=== PATIENT | female | born 1970 | race Caucasian/White ===

== ENCOUNTER → 2017-01-03 | Outpatient (REF) | payer OTHER ==
[~2017-01-03] MED LIST: BUSP15TA47 PO; CYMB60CA3 PO; KETO10TAB PO; MELO7.5T7 PO; OMEP10CASR PO; TIZA4CAP3 PO; TRAZ50TA11 PO; VICO5TAB16 PO
[2017-01-03 21:29] LABS: ALBUMIN 3.5 GM/DL (3.2-5.2); ALBUMIN/GLOBULIN RATIO 1.06 (1.00-1.93); ALKALINE PHOSPHATASE 92 U/L (45-117); ALT/SGPT 31 U/L (12-78); AMYLASE 49 U/L (25-115); ANION GAP 7 MEQ/L (8-16); AST/SGOT 14 U/L (15-37); BILIRUBIN,TOTAL 0.2 MG/DL (0.2-1.0); BLOOD UREA NITROGEN 11 MG/DL (7-18); CALCIUM LEVEL 9.1 MG/DL (8.5-10.1); CARBON DIOXIDE LEVEL 29 MEQ/L (21-32); CHLORIDE LEVEL 102 MEQ/L (98-107); CREATININE FOR GFR 0.66 MG/DL (0.55-1.02); GLOMERULAR FILTRATION RATE > 60.0 (>58); GLUCOSE, FASTING 98 MG/DL (70-105); POTASSIUM SERUM 4.5 MEQ/L (3.5-5.1); SODIUM LEVEL 138 MEQ/L (136-145); TOTAL PROTEIN 6.8 GM/DL (6.4-8.2)
[2017-01-03 21:30] LABS: BASO % 0.1 % (0.0-1.0); EOS # 0.1 K/mm3 (0.0-0.50); EOS % 1.3 % (0.0-3.0); LARGE UNSTAINED CELL # 0.2 K/mm3 (0.0-0.4); LARGE UNSTAINED CELL % 1.4 % (0.0-4.0); LYMPH # 2.4 K/mm3 (1.5-4.5); LYMPH % 20.1 % (24.0-44.0); MEAN CORPUSCULAR HEMOGLOBIN 31.1 pg (27.0-33.0); MEAN CORPUSCULAR HGB CONC 32.5 g/dl (32.0-36.5); MEAN CORPUSCULAR VOLUME 95.6 fl (80.0-96.0); MONO # 0.6 K/mm3 (0.0-0.8); MONO % 5.1 % (0.0-5.0); NEUTROPHILS % 71.9 % (36.0-66.0); PLATELET COUNT, AUTOMATED 313 k/mm3 (150-450); RED CELL DISTRIBUTION WIDTH 14.1 % (11.5-14.5); WHITE BLOOD COUNT 11.1 K/mm3 (4.0-10.0)
== END ==
LOC: M LABDRWAD 20:51 → M LAB REF 20:51
PROVIDERS: ATTEND Physician Assistant
DX: R10.84 Generalized abdominal pain (principal)

== ENCOUNTER 2017-02-19 19:40 | Emergency (ER) | payer OTHER ==
[~2017-02-19] VITALS: Ht 160 cm; Wt 86.4 kg
[2017-02-19 19:41] VITALS: BP 131/86
[2017-02-19] MEDS ORDERED: OMEP10CASR PO (20:05)
[2017-02-19] MEDS ORDERED: TIZA4CAP3 PO (20:05)
[2017-02-19] MEDS ORDERED: BUSP15TA47 PO (20:05)
[2017-02-19] MEDS ORDERED: VICO5TAB16 PO (20:05)
[2017-02-19] MEDS ORDERED: TRAZ50TA11 PO (20:05)
[2017-02-19] MEDS ORDERED: MELO7.5T7 PO (20:05)
[2017-02-19] MEDS ORDERED: CYMB60CA3 PO (20:05)
[2017-02-19] MEDS ORDERED: PERCOCET 5MG/325MG TAB PO ONE (22:30)
[2017-02-19] MEDS ORDERED: KETO10TAB PO (23:02)
--- NOTE | 2017-02-20 08:48 | REP ---
Clinical: Right shoulder pain. Technique: Internal rotation, external rotation, and Y view. Findings: Mild arthritic degenerative changes at the acromioclavicular joint include joint space narrowing with subtle spurring. The glenohumeral joint appears intact and normal. The subacromial space is normal. No periarticular calcifications are appreciated. 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 Signed by Horacio Clay MD 02/20/2017 08:40 A
== END 2017-02-19 23:41 | disposition home or self-care (01) ==
LOC: M ED 19:40
DX: M25.511 Pain in right shoulder (principal)

== ENCOUNTER → 2017-09-11 | Outpatient (CLI) | payer OTHER ==
[2017-09-11 17:53] LABS: BASO % 0.3 % (0.0-1.0); EOS # 0.1 10^3/uL (0.0-0.50); EOS % 1.2 % (0.0-3.0); HEMATOCRIT 39.4 % (36.0-47.0); HEMOGLOBIN 12.4 g/dl (12.0-16.0); IMMATURE GRANULOCYTE % 0.3 % (0-3.0); MEAN CORPUSCULAR HEMOGLOBIN 28.7 pg (27.0-33.0); MEAN CORPUSCULAR HGB CONC 31.5 g/dl (32.0-36.5); MEAN CORPUSCULAR VOLUME 91.2 fl (80.0-96.0); MONO # 0.5 10^3/uL (0.0-0.8); MONO % 4.5 % (0.0-5.0); NEUTROPHILS # 7.1 10^3/uL (1.8-7.7); NEUTROPHILS % 65.7 % (36.0-66.0); PLATELET COUNT, AUTOMATED 360 10^3/uL (150-450); RED BLOOD COUNT 4.32 10^6/uL (4.00-5.40); RED CELL DISTRIBUTION WIDTH 13.8 % (11.5-14.5); WHITE BLOOD COUNT 10.8 10^3/uL (4.0-10.0)
== END ==
LOC: M ADAMS 09:17
DX: J20.9 Acute bronchitis, unspecified (principal)
CPT/HCPCS: 85025

== ENCOUNTER → 2017-09-15 | Outpatient (REF) | payer OTHER | LOC: M LAB REF 17:45 | DX: N64.89 Other specified disorders of breast (principal) | CPT/HCPCS: 88305 ==

== ENCOUNTER → 2017-12-07 | Outpatient (CLI) | payer OTHER | LOC: M ADAMS 19:00 | DX: M25.572 Pain in left ankle and joints of left foot (principal) ==

== ENCOUNTER → 2017-12-07 | Outpatient (CLI) | payer OTHER | LOC: M ADAMS 18:11 | DX: M25.572 Pain in left ankle and joints of left foot (principal) | CPT/HCPCS: 73610 ==

== ENCOUNTER 2018-01-28 18:36 | Emergency (ER) | payer OTHER ==
[2018-01-28 20:16] LABS: BASO % 0.1 % (0.0-1.0); EOS # 0.7 10^3/uL (0.0-0.50); EOS % 4.9 % (0.0-3.0); HEMATOCRIT 29.9 % (36.0-47.0); HEMOGLOBIN 9.4 g/dl (12.0-15.5); IMMATURE GRANULOCYTE % 0.3 % (0-3.0); LYMPH # 3.8 10^3/uL (1.5-4.5); LYMPH % 25.6 % (24.0-44.0); MEAN CORPUSCULAR HEMOGLOBIN 29.7 pg (27.0-33.0); MEAN CORPUSCULAR HGB CONC 31.4 g/dl (32.0-36.5); MEAN CORPUSCULAR VOLUME 94.6 fl (80.0-96.0); MONO # 0.7 10^3/uL (0.0-0.8); NEUTROPHILS # 9.4 10^3/uL (1.8-7.7); NEUTROPHILS % 64.1 % (36.0-66.0); PLATELET COUNT, AUTOMATED 401 10^3/uL (150-450); RED BLOOD COUNT 3.16 10^6/uL (4.00-5.40); RED CELL DISTRIBUTION WIDTH 13.2 % (11.5-14.5); WHITE BLOOD COUNT 14.7 10^3/uL (4.0-10.0)
[2018-01-28] MEDS: AMPICILLIN SOD/SULBACTAM SOD 3 GM in D5W MINI-BAG PLUS 100 ML IV (20:28)
== END 2018-01-28 20:56 | disposition home or self-care (01) ==
LOC: M ED 18:36
DX: N61.1 Abscess of the breast and nipple (principal); K21.9 Gastro-esophageal reflux disease without esophagitis; G89.29 Other chronic pain; M54.2 Cervicalgia
CPT/HCPCS: 76881

== ENCOUNTER 2018-02-01 20:15 | Emergency (ER) | payer OTHER ==
[2018-02-01] MEDS: CLINDAMYCIN 150 MG CAP PO (23:31)
== END 2018-02-01 23:39 | disposition home or self-care (01) ==
LOC: M ED 20:15
DX: L76.82 Other postprocedural complications of skin and subcutaneous tissue (principal); N61.0 Mastitis without abscess; N64.1 Fat necrosis of breast; K21.9 Gastro-esophageal reflux disease without esophagitis; M54.9 Dorsalgia, unspecified; Z79.899 Other long term (current) drug therapy
CPT/HCPCS: 99283

== ENCOUNTER → 2018-03-21 | Outpatient (REF) ==
[2018-03-22 10:15] LABS: RUBEOLA IgG ANTIBODY >300.0 AU/mL (Immune >29.9)
[2018-03-22 11:55] LABS: RUBELLA IgG QUALITATIVE IMMUNE (IMMUNE)
== END ==
LOC: M LAB 12:02
DX: Z00.00 Encounter for general adult medical examination without abnormal findings (principal)

== ENCOUNTER 2018-05-05 07:16 | Emergency (ER) | payer OTHER | END 2018-05-05 09:23 | disposition home or self-care (01) | LOC: M ED 07:16 | DX: M25.551 Pain in right hip (principal); M25.561 Pain in right knee; W00.0XXA Fall on same level due to ice and snow, initial encounter; Y92.89 Other specified places as the place of occurrence of the external cause; K21.9 Gastro-esophageal reflux disease without esophagitis; Z79.899 Other long term (current) drug therapy | CPT/HCPCS: 73564 ==

== ENCOUNTER 2018-06-05 10:33 | Emergency (ER) | payer OTHER ==
[2018-06-05 11:25] LABS: BEDSIDE GLUCOSE 81 MG/DL (70-105)
[2018-06-05] MEDS: IBUPROFEN 800 MG TAB PO (12:45)
== END 2018-06-05 12:50 | disposition home or self-care (01) ==
LOC: M ED 10:33
DX: M77.9 Enthesopathy, unspecified (principal); M19.072 Primary osteoarthritis, left ankle and foot; M79.9 Soft tissue disorder, unspecified; K21.9 Gastro-esophageal reflux disease without esophagitis; Z98.1 Arthrodesis status; Z79.899 Other long term (current) drug therapy
CPT/HCPCS: 73630

== ENCOUNTER 2018-08-18 14:52 | Emergency (ER) | payer OTHER ==
[~2018-08-18] VITALS: Ht 160 cm; Wt 90.9 kg
[~2018-08-18 14:52] MED LIST changes: +AUGM500T34 PO; +BACL10TA2 PO; +CLEO300C2 PO; +TIZA4CAP PO; -TIZA4CAP3 PO; +TRAZ-160 PO; -TRAZ50TA11 PO
[2018-08-18] MEDS ORDERED: CEFD1CAP8 (14:58)
[2018-08-18 15:50] LABS: INFLUENZA A AMPLIFICATION NEGATIVE (NEGATIVE); INFLUENZA B AMPLIFICATION NEGATIVE (NEGATIVE)
[2018-08-18 16:14] VITALS: BP 138/72
== END 2018-08-18 16:15 | disposition home or self-care (01) ==
LOC: M ED 14:52
DX: J06.9 Acute upper respiratory infection, unspecified (principal)

== ENCOUNTER 2018-10-20 19:48 | Emergency (ER) | payer OTHER ==
[~2018-10-20] VITALS: Ht 160 cm; Wt 90.9 kg
[~2018-10-20 19:48] MED LIST changes: +CEFD1CAP8; -VICO5TAB16 PO; +VICO5TAB17 PO
[2018-10-20] MEDS ORDERED: PRED20TA (20:01)
[2018-10-20] MEDS ORDERED: AMOX875T2 (20:01)
[2018-10-20] MEDS ORDERED: predniSONE 20 MG TAB PO ONE (20:30)
[2018-10-20] MEDS ORDERED: IPRATROPIUM 0.5MG/ALBUTEROL 2.5MG INH SOL UD 3ML (DUONEB)(J7620) NEB ONE (20:30)
[2018-10-20] MEDS ORDERED: AZITHROMYCIN 250 MG TAB PO ONE (20:30)
[2018-10-20] MEDS ORDERED: ALBUTEROL SULFATE 2.5 MG/0.5 ML INH NEB SOLN NEB ONE (21:15)
[2018-10-20] MEDS ORDERED: ZITHTAB PO (22:18)
[2018-10-20] MEDS ORDERED: PRED20TA PO (22:18)
[2018-10-20 22:43] VITALS: BP 138/71
--- NOTE | 2018-10-21 13:08 | REP ---
CHEST, TWO VIEWS: There is no evidence of acute infiltrate. No pleural effusion is seen. The heart is normal in size. The mediastinal silhouette is unremarkable. The visualized osseous structures are intact. There are mild degenerative changes of the spine. IMPRESSION: No acute pulmonary disease. Electronically Signed by Rolando Pereira MD 10/21/2018 03:52 P
== END 2018-10-20 22:45 | disposition home or self-care (01) ==
LOC: M ED 19:48
DX: J45.901 Unspecified asthma with (acute) exacerbation (principal); J20.9 Acute bronchitis, unspecified

== ENCOUNTER 2019-01-11 04:50 | Emergency (ER) | payer OTHER ==
[~2019-01-11] VITALS: Ht 160 cm; Wt 88.6 kg
[2019-01-11 04:50] VITALS: BP 161/99
[~2019-01-11 04:50] MED LIST changes: +AMOX875T2; +PRED20TA; +PRED20TA PO; -TRAZ-160 PO; +TRAZ-252 PO; +ZITHTAB PO
[2019-01-11] MEDS ORDERED: BACT800T5 PO (06:30)
== END 2019-01-11 06:50 | disposition home or self-care (01) ==
LOC: M ED 04:50
DX: L72.0 Epidermal cyst (principal); L08.89 Other specified local infections of the skin and subcutaneous tissue; Z86.14 Personal history of Methicillin resistant Staphylococcus aureus infection; Z79.899 Other long term (current) drug therapy

== ENCOUNTER 2019-01-17 14:32 | Emergency (ER) | payer OTHER ==
[~2019-01-17] VITALS: Ht 160 cm; Wt 88.6 kg
[~2019-01-17 14:32] MED LIST changes: +BACT800T5 PO
[2019-01-17 15:51] VITALS: BP 130/87
== END 2019-01-17 16:08 | disposition home or self-care (01) ==
LOC: M ED 14:32
DX: Z48.00 Encounter for change or removal of nonsurgical wound dressing (principal); Z79.899 Other long term (current) drug therapy; Z72.0 Tobacco use

== ENCOUNTER → 2019-07-31 | Outpatient (REF) | payer OTHER ==
[2019-07-31 19:42] LABS: APPEARANCE, URINE HAZY (CLEAR); BACTERIA, URINE AUTO 2+ (NEGATIVE); BILIRUBIN, URINE AUTO NEGATIVE (NEGATIVE); BLOOD, URINE BLOOD 3+ (NEGATIVE); COLOR, URINE YELLOW (YELLOW); GLUCOSE, URINE (UA) AUTO NEGATIVE (NEGATIVE); KETONE, URINE AUTO NEGATIVE (NEGATIVE); LEUKOCYTE ESTERASE, URINE AUTO 3+ (NEGATIVE); MUCUS, URINE SMALL (NEGATIVE); NITRITE, URINE AUTO POSITIVE (NEGATIVE); PROTEIN, URINE AUTO NEGATIVE (NEGATIVE); RBC, URINE AUTO 152 /HPF (0-3); SPECIFIC GRAVITY URINE AUTO 1.023 (1.002-1.035); SQUAMOUS EPITHELIAL CELL UR AU 1 /HPF (0-6); UROBILINOGEN, URINE AUTO 0.2 mg/dL (0.0-2.0); WBC, URINE AUTO 117 /HPF (0-3)
== END ==
LOC: M LAB REF 19:25
PROVIDERS: ATTEND Physician Assistant Medical
DX: N39.0 Urinary tract infection, site not specified (principal)

== ENCOUNTER 2019-08-14 10:18 | Emergency (ER) | payer OTHER ==
[~2019-08-14] VITALS: Ht 160 cm; Wt 97.4 kg
[2019-08-14] MEDS ORDERED: IBUPROFEN 800 MG TAB PO ONE (11:15)
--- NOTE | 2019-08-14 12:03 | REP ---
Sonography of the iliac: The patient has a raised red area of the neck posteriorly for the past 3 days. Ultrasonography of this area is performed. In the in this area there is a subcutaneous nodule like structure measuring 0.7 x 0.9 x 0.6 cm with a thin echolucent or an echogenic center. With color Doppler assessment there is no vascular flow detected within this structure. This is nonspecific and may represent a subcutaneous lymph node, lipoma, sebaceous cyst, focal phlegmon, or inclusion cyst. There is no fluid to suggest abscess or hematoma. Impression: In the subcutaneous soft tissues in the area of the ring is read lesion on the right posteriorly. There is a nodule like structure as described, nonspecific. Electronically Signed by Rolando Haq MD 08/14/2019 11:53 A
[2019-08-14 12:32] VITALS: BP 127/84
== END 2019-08-14 12:33 | disposition home or self-care (01) ==
LOC: M ED 10:18
DX: L02.12 Furuncle of neck (principal); K21.9 Gastro-esophageal reflux disease without esophagitis; F41.9 Anxiety disorder, unspecified; F33.9 Major depressive disorder, recurrent, unspecified; Z79.2 Long term (current) use of antibiotics; Z79.899 Other long term (current) drug therapy

== ENCOUNTER → 2020-04-22 | Outpatient (REF) | payer MEDICARE ==
[~2020-04-22] MED LIST changes: +HYDR-3713 PO; +METF500T13 PO; +OMEP-406 PO; +REXU1TAB5 PO
== END ==
LOC: M SFHCWAGY 13:31
PROVIDERS: ATTEND Obstetrics & Gynecology
DX: Z12.4 Encounter for screening for malignant neoplasm of cervix (principal); N95.8 Other specified menopausal and perimenopausal disorders
CPT/HCPCS: 87624; G0123; G0463

== ENCOUNTER → 2020-04-25 | Outpatient (CLI) | payer OTHER ==
--- NOTE | 2020-04-25 10:40 | REP ---
INDICATION: N95.0 POSTMENOPAUSAL BLEEDING. COMPARISON: 03/15/2014. TECHNIQUE: Transabdominal and transvaginal scanning performed. FINDINGS: Uterine dimensions are normal at 7.9 x 3.8 x 4.8 cm. Endometrial echo is 21 mm thick and centrally placed. Echotexture of the endometrium is markedly heterogeneous with scattered tiny cystic components lobulated margins. Underlying hyperplasia or neoplasm cannot be excluded. Please correlate with patient's menstrual history. The bladder measures 7.0 x 4.1 x 5.8 cm. The right ovary has dimensions of 1.8 x 1.1 x 1.2 cm. Blood flow is seen in the right ovary with Doppler evaluation, with no torsion. The left ovary dimensions are normal as well at 1.9 x 1.1 x 1.4 cm. Blood flow is seen in the left ovary with Doppler evaluation, with no torsion. There is no adnexal mass identified. No free fluid is seen in the cul-de-sac. IMPRESSION: Thickened heterogeneous endometrium, AP diameter 21 mm. There are tiny cystic areas scattered throughout the endometrium, with lobulated margins and scattered areas of blood flow with Doppler evaluation. Please correlate with menstrual history. I cannot exclude underlying hyperplasia or endometrial neoplasm. Consider endometrial sampling. <Electronically signed by Rolando Pereira > 04/25/20 [id number]
== END ==
LOC: M WHC 09:30
PROVIDERS: ATTEND Obstetrics & Gynecology
DX: N85.8 Other specified noninflammatory disorders of uterus (principal); N95.0 Postmenopausal bleeding

== ENCOUNTER → 2020-04-27 | Outpatient (CLI) | payer OTHER, MEDICARE | LOC: M LABSMTC 09:58 | PROVIDERS: ATTEND Anesthesiology | DX: Z01.812 Encounter for preprocedural laboratory examination (principal); Z20.828 Contact with and (suspected) exposure to other viral communicable diseases | CPT/HCPCS: C9803; U0003 ==

== ENCOUNTER 2020-05-02 06:16 | Day surgery (SDC) | payer OTHER ==
[~2020-05-02] VITALS: Ht 160 cm; Wt 103.4 kg
[~2020-05-02 06:16] MED LIST changes: +LR 1,000 ML IV SCH
[2020-05-02 06:47] LABS: HEMATOCRIT 39.4 % (36.0-47.0); HEMOGLOBIN 12.4 g/dl (12.0-15.5); MEAN CORPUSCULAR HEMOGLOBIN 29.3 pg (27.0-33.0); MEAN CORPUSCULAR HGB CONC 31.5 g/dl (32.0-36.5); MEAN CORPUSCULAR VOLUME 93.1 fl (80.0-96.0); PLATELET COUNT, AUTOMATED 313 10^3/uL (150-450); RED BLOOD COUNT 4.23 10^6/uL (4.00-5.40); WHITE BLOOD COUNT 11.6 10^3/uL (4.0-10.0)
[2020-05-02] MEDS ORDERED: dexameTHASONE 4 MG/ML 1ML VIAL (J1100 PER 1MG) As Ordered ONE (07:16)
[2020-05-02] MEDS ORDERED: fentaNYL 100 MCG/2 ML INJECTION (J3010) As Ordered ONE (07:16)
[2020-05-02] MEDS ORDERED: ONDANSETRON 4MG/2ML VIAL As Ordered ONE (07:16)
[2020-05-02] MEDS ORDERED: LIDOCAINE 2% 100MG/5ML SDV (FOR ANES.) As Ordered ONE (07:16)
[2020-05-02] MEDS ORDERED: MIDAZOLAM INJ 2MG/2ML VIAL (J2250 PER 1MG) As Ordered ONE (07:16)
[2020-05-02] MEDS ORDERED: propofoL 200 MG/20 ML VIAL As Ordered ONE (07:16)
[2020-05-02] MEDS ORDERED: LR 1,000 ML IV ONE (07:45)
[2020-05-02] MEDS ORDERED: PHENYLephrine HCL 500 MCG/5 ML (100MCG/ML) SYRINGE (J2370) As Ordered ONE (07:49)
--- NOTE | 2020-05-02 08:17 | ROOPDOC ---
[facility] Report Of Operation Report of Operation DATE OF PROCEDURE: 05/02/2020 PREOPERATIVE DIAGNOSIS: Postmenopausal bleeding POSTOPERATIVE DIAGNOSIS: Postmenopausal bleeding PROCEDURE PERFORMED: Hysteroscopy, dilatation and curettage. SURGEON: Marija Turner DO PROSTHETIC AIDES TEACHER: None. ANESTHESIA TYPE: General via LMA. SPECIMENS SENT TO PATHOLOGY: Endometrial curettings, endometrial biopsy ESTIMATED BLOOD LOSS: 20 mL. FLUIDS REPLACED: 500 mL lactated Ringer's. DRAINS: In and out urinary catheter. URINE OUTPUT: 100 mL. COMPLICATIONS: None. PREOPERATIVE ANTIBIOTICS: None indicated. INTRAOPERATIVE FINDINGS: Abundant endometrium inside the endometrial cavity. No distinct endometrial mass INDICATIONS: The patient is a 49-year-old with postmenopausal bleeding PROCEDURE: The patient was counseled and consented on the risks, benefits, indications, and alternatives of the procedure. Informed consent was obtained. She was taken to the operating room with an IV running and placed on the operating room table in the dorsal supine position. General anesthesia was administered and the airway secured without any difficulty. She was then placed in the high lithotomy position. She was prepped and draped in normal sterile fashion. A time out was performed per protocol. The bladder was drained with a sterile in and out catheter. A sterile speculum was placed with good visualization of the cervix. The cervix was grasped with a single-toothed tenaculum and downward traction was applied. The cervix was then sequentially dilated with Orlin dilators up to a #18. The hysteroscope was placed transcervically into the intrauterine cavity with the findings noted above, then the hysteroscope was removed after taking truck sales representative images. The curette was placed transcervically into the intrauterine cavity and endometrial decidual tissue was curetted until there was gritty texture noted throughout the cavity, indicating no more decidualized tissue. An endometrial Pipelle was used to obtain tissue in 3 passes. The bleeding from the os after removal of the curette was minimal. The tenaculum was removed. The tenaculum sites were hemostatic. All instruments were removed from the vagina. Sponge, needle, and instrument counts were correct per protocol. The patient tolerated the entire procedure well. She was transferred to the PACU in good and stable condition. MARIJA TURNER DO May 02, 2020 08:17
[2020-05-02] MEDS ORDERED: ONDANSETRON 4MG/2ML VIAL IV PRN (08:30)
[2020-05-02] MEDS ORDERED: LR 1,000 ML IV SCH (08:30)
[2020-05-02] MEDS ORDERED: fentaNYL 100 MCG/2 ML INJECTION (J3010) IV PRN (08:30)
[2020-05-02] MEDS: oxyCODONE 5MG TAB PO PRN ×2 (08:36→09:18)
[2020-05-02 08:56] VITALS: BP 131/76
== END 2020-05-02 09:35 | disposition home or self-care (01) ==
LOC: M SDC 06:16
PROVIDERS: ATTEND Obstetrics & Gynecology
DX: N95.0 Postmenopausal bleeding (principal); E11.9 Type 2 diabetes mellitus without complications; K21.9 Gastro-esophageal reflux disease without esophagitis; J45.909 Unspecified asthma, uncomplicated; F32.9 Major depressive disorder, single episode, unspecified; Z79.899 Other long term (current) drug therapy
CPT/HCPCS: 36415; 58558; 81025; 85027; 86850; 86900; 86901; 88305; J1100; J2250; J2370; J2405; J3010

== ENCOUNTER 2020-07-31 16:24 | Inpatient (IN) | payer OTHER ==
[~2020-07-31] VITALS: Ht 160 cm; Wt 104.0 kg
[~2020-07-31 16:24] MED LIST changes: -LR 1,000 ML IV SCH
--- OUTSIDE RECORDS SUMMARY | 2020-07-31 16:30 | CCD ---
Author Author [facility] Organization [facility] Address Unknown Phone Unavailable Care Team Providers Care Premium Auditor Name Role Phone Turner, Nico Unavailable PROBLEMS Type Condition ICD9-CM Code SSN00-GF Code Onset Dates Condition S tatus SNOMED Code Notes Problem Postmenopausal bleeding N95.0 Active 11522686 ALLERGIES No Known Allergies ENCOUNTERS from 1970 to 2020-05-08 Encounter Location Date Provider Diagnosis [facility] [address] [place] [id number] Apr, Nico Turner Postmenopausal bleed ing N95.0 and Cervical cancer screening Z12.4 IMMUNIZATIONS No Information SOCIAL HISTORY Tobacco Use: Social History Observation Description Date Details (start date - stop date) Never Smoker Sex Assigned At : Social History Observation Description Sex Assigned At Unknown Domestic Violence: Question Answer Notes Status: No history of abuse Sexual Hx: Question Answer Notes Had sex in the last 12 months (vaginal, oral, or anal)? Yes Have you ever had an STD? No with Women only Alcohol Screening: Question Answer Notes Did you have a drink containing alcohol in the past year? Ye s Points 1 Interpretation Negative How often did you have six or more drinks on one occas ion in the past year? Never (0 points) How many drinks did you have on a typica l day when you were drinking in the past year? 1 or 2 (0 points) How often did you have a drink containing alcohol in t he past year? Monthly or less (1 point) Tobacco Use: Question Answer Notes Are you a: never smoker REASON FOR REFERRAL No Information VITAL SIGNS Weight 228.2 lbs Apr, Height 63 in Apr, BMI 40.42 kg/m2 Apr, Blood pressure systolic 126 mm Hg Apr, Blood pressure diastolic 84 mm Hg Apr, MEDICATIONS Medication SIG (Take, Route, Frequency, Duration) Notes Start Da te End Date Status BusPIRone HCl 15 MG 1 tablet Orally Twice a day Active Cymbalta 60 MG 2 capsules Orally Once a day Active Hydrocodone-Acetaminophen 5-325 MG 1 tablet as needed Orally every 6 hrs Active PROCEDURES No Information RESULTS Component Value Reference Range WWBC Pelvis non-OB COMPLETE US Reviewed date:04/25/2020 11:06:40 Interpretation: Performing Lab:[facility],[address]], ,[place] [id number] PAP REQUEST FOR SERVICE Reviewed date:05/05/2020 16:03:45 Interpretation:KEN Performing Lab:[facility]ly [facility], [facility] [address] [facility] [address] [address] , ,[facility] REASON FOR VISIT IRREG CYCLES MEDICAL (GENERAL) HISTORY Type Description Date Medical History asthma Medical History depression Medical History back pain - upper and lower Surgical History spinal surgery - L4/L3 Surgical History spinal fusion - C3/C7 Surgical History knee surgery Surgical History ankle surgery Surgical History gall bladder removal Surgical History tubal ligation Surgical History hand surgery Hospitalization History surgery Goals Section No Information Health Concerns No Information MEDICAL EQUIPMENT No Information MENTAL STATUS No Information FUNCTIONAL STATUS No Information ASSESSMENTS Encounter Date Diagnosis Assessment Notes Treatment Notes Treatm ent Clinical Notes Apr, Postmenopausal bleeding (ICD-10 - N95.0) PMB that warrants evaluation. Pap updated today. Pelvic US ordered. Recommended HSC/D&C for endometrial evaluation. Patient was counseled/consented on Hysteroscopy, D&C procedure. We specifically reviewed the risks of uterine perforation, postoperative infection, endometrial CA Dx, and potential for ongoing bleeding despite undergoing this procedure, possible need for blood transfusion, possible unintended injury to surrounding organs, and the risk of an endometrial cancer diagnosis with the D&C. Apr, Cervical cancer screening (ICD-10 - Z12.4) PLAN OF TREATMENT Treatment Notes Assessment Notes Clinical Notes Postmenopausal bleeding PMB that warrant s evaluation. Pap updated today. Pelvic US ordered. Recommended HSC/D&C for endometrial evaluation.Patient was counseled/consented on Hysteroscopy, D&C procedure. We specifically reviewed the risks of uterine perforation, postoperative infection, endometrial CA Dx, and potential for ongoing bleeding despite undergoing this procedure, possible need for blood transfusion, possible unintended injury to surrounding organs, and the risk of an endometrial cancer diagnosis with the D&C. Next Appt Details Next available. HSC/D&C to be scheduled Reason: Provider Name:Nico Turner, 12:45:00 AM, [facility] [place], [phone], Insurance Providers Payer Name Payer Address Payer Phone Insured Name Patient Relati onship to Insured Coverage Start Date Coverage End Date [facility] [address] [facility] [address] HUONG SHIRLEY self
--- OUTSIDE RECORDS SUMMARY | 2020-07-31 16:30 | CCD ---
Author Author [facility] Organization [facility] Address Unknown Phone Unavailable Care Team Providers Care Frozen Food Selector Name Role Phone MARCO ANTONIO GARCIA MD Unavailable Unavailable MARCO ANTONIO GARCIA MD Unavailable Unavailable MARCO ANTONIO GARCIA MD Unavailable Unavailable MARCO ANTONIO GARCIA MD Unavailable Unavailable MARCO ANTONIO GARCIA MD Unavailable Unavailable MARCO ANTONIO GARCIA MD Unavailable Unavailable MARCO ANTONIO GARCIA MD Unavailable Unavailable MARCO ANTONIO GARCIA MD Unavailable Unavailable MARCO ANTONIO GARCIA MD Unavailable Unavailable MARCO ANTONIO GARCIA MD Unavailable Unavailable MARCO ANTONIO GARCIA MD Unavailable Unavailable MARCO ANTONIO GARCIA MD Unavailable Unavailable MARCO ANTONIO GARCIA MD Unavailable Unavailable MARCO ANTONIO GARCIA MD Unavailable Unavailable MARCO ANTONIO GARCIA MD Unavailable Unavailable MARCO ANTONIO GARCIA MD Unavailable Unavailable MARCO ANTONIO GARCIA MD Unavailable Unavailable MARCO ANTONIO GARCIA MD Unavailable Unavailable MARCO ANTONIO GARCIA MD Unavailable Unavailable MARCO ANTONIO GARCIA MD Unavailable Unavailable MARCO ANTONIO GARCIA MD Unavailable Unavailable MARCO ANTONIO GARCIA MD Unavailable Unavailable MARCO ANTONIO GARCIA MD Unavailable Unavailable MARCO ANTONIO GARCIA MD Unavailable Unavailable GARCIA, MARCO ANTONIO MD Unavailable Unavailable GARCIA, MARCO ANTONIO MD Unavailable Unavailable GARCIA, MARCO ANTONIO MD Unavailable Unavailable GARCIA, MARCO ANTONIO MD Unavailable Unavailable GARCIA, MARCO ANTONIO MD Unavailable Unavailable GARCIA, MARCO ANTONIO MD Unavailable Unavailable Roxane, C Giorgio MD Unavailable Unavailable Roxane, C Giorgio MD Unavailable Unavailable Roxane, C Giorgio MD Unavailable Unavailable Roxane, C Giorgio MD Unavailable Unavailable Roxane, C Giorgio MD Unavailable Unavailable Roxane, C Giorgio MD Unavailable Unavailable Roxane, C Giorgio MD Unavailable Unavailable Roxane, C Giorgio MD Unavailable Unavailable Roxane, C Giorgio MD Unavailable Unavailable Roxane, C Giorgio MD Unavailable Unavailable Roxane, C Giorgio MD Unavailable Unavailable Roxane, C Giorgio MD Unavailable Unavailable Re-disclosure Warning The records that you are about to access may contain information from federally-assisted alcohol or drug abuse programs. If such information is present, then the following federally mandated warning applies: This information has been disclosed to you from records protected by federal confidentiality rules (42 CFR part 2). The federal rules prohibit you from making any further disclosure of this information unless further disclosure is expressly permitted by the written consent of the person to whom it pertains or as otherwise permitted by 42 CFR part 2. A general authorization for the release of medical or other information is NOT sufficient for this purpose. The Federal rules restrict any use of the information to criminally investigate or prosecute any alcohol or drug abuse patient.The records that you are about to access may contain highly sensitive health information, the redisclosure of which is protected by Article 27-F of the [facility] Public Health law. If you continue you may have access to information: Regarding HIV / AIDS; Provided by facilities licensed or operated by the [facility] Office of Mental Health; or Provided by the [facility] Office for People With Developmental Disabilities. If such information is present, then the following [facility] mandated warning applies: This information has been disclosed to you from confidential records which are protected by state law. State law prohibits you from making any further disclosure of this information without the specific written consent of the person to whom it pertains, or as otherwise permitted by law. Any unauthorized further disclosure in violation of state law may result in a fine or chcf sentence or both. A general authorization for the release of medical or other information is NOT sufficient authorization for further disc losure. Family History Family Member Name Family Member Gender Family Member Status Date o f Status Description Data Source(s) Unknown Unknown Problem MEDENT ([facility]) father's side Unknown Male Problem MEDENT ([facility]) Encounters Encounter Providers Location Date Indications Data Source(s ) Unknown [address] [facility] [address] 04/24/2020 12:00:00 AM EST eCW1 ([facility]) Outpatient [address] [facility] [address] 04/22/2020 12:00:00 AM EST eCW1 ([facility]) Outpatient Referrer: Girogio Betts MD 12/19/2019 11:18:00 A M EDT [facility] Outpatient Referrer: Giorgio Betts MD 12/19/2019 11:08:00 A M EDT [facility] Outpatient Referrer: Giorgio Betts MD 12/19/2019 11:02:00 A M EDT [facility] Outpatient Referrer: MARCO ANTONIO GARCIA MD 08/21/2019 04:03:0 0 PM EST [facility] Insurance Providers Payer name Policy type / Coverage type Policy ID Covered libertarian ID Covered libertarian's relationship to stephen Policy Stephen Plan Information [facility] MCDO [id number] SP [id number] [facility] O [id number] S [id number] [facility] [id number] SP [id number] 'S ADMINISTRATION [id number] SP [id number] [facility] O UNAVAILABLE S UNAVAILABLE [facility] O [id number] S [id number] [facility] PLAN XIX [id number] 18 [id number] Veterans Choice PRG-Vacaa Medigap Part B [id number] Self [id number] [facility] Community Plan Commercial [id number] Self [id number] Veterans Choice PRG-Vacaa Medigap Part B [id number] Self [id number] [facility] Health Maintenance Organization (HMO) [id number] Self [id number] Veterans Choice PRG-Vacaa Medigap Part B [id number] Self [id number] [facility] Health Maintenance Organization (HMO) [id number] Self [id number] PMA MANAGEMENT [facility] [id number] SP [id number] PMA MANAGEMENT [facility]ACK[facility]N [facility] O [id number] S [id number] [facility] Maintenance Organization (HMO) [id number] Self [id number] United CR/Community [facility] Health Maintenance Organization (HMO) [id number] Self [id number] [facility] O [id number] S [id number] [place] [facility] Health Maintenance Organization (HMO) [id number] Self [id number] [place] [facility] Health Maintenance Organization (HMO) [id number] Self [id number] [facility] Maintenance Organization (HMO) [id number] Self [id number] Veterans Choice PRG-Vacaa Medigap Part B [id number] Self [id number] [facility] Community Plan Commercial [id number] Self [id number] [place] [facility] Health Maintenance Organization (HMO) [id number] Self [id number] [facility] PLAN MCDHMO [id number] SP [id number] [facility] Maintenance Organization (HMO) [id number] Self [id number] [facility] Maintenance Organization (HMO) [id number] Self [id number] Veterans Choice PRG-Vacaa Commercial [id number] Self [id number] [facility] Maintenance Organization (HMO) [id number] Self [id number] SELF PAY ONLY UNAVAILABLE SP UNAV AILABLE 'S ADMINISTRATION [id number] SP [id number] HEALTH NET VA CHOICE [id number] SP [id number] HEALTH NET VA CHOICE UNAVAILABLE SP UNAVAILABLE HEALTH NET VA CHOICE UNAVAILABLE SP UNAVAILABLE [facility] ATT:CASSANDRA [id number] SP [id number] SP [id number] SELF PAY UNAVAILABLE UNAVAILA BLE P UNAVAILABLE UNAVAILA BLE 'S ADMINISTRATION VA SP [facility] [place] P [id number] S [id number] ELVIN BUSBY WORKER COMP [id number] SP [id number] OTHER WORKERS COMPENSATION [id number] SP [id number] [facility] [id number] SP [id number] Problems, Conditions, and Diagnoses Code Display Name Description Problem Type Effective Dates Data Source(s) N95.0 [id number] Postmenopausal bleeding Problem 04/22/2020 1 2:00:00 AM EST eCW1 ([facility]) Results ID Date Data Source [id number] 04/27/2020 11:55:00 AM EST [facility] Name Value Range Interpretation Code Description Data Ely rce(s) Supporting Document(s) SARS coronavirus 2 RNA [facility] This lab was ordered by [facility] and reported by [facility]. ID Date Data Source [facility] Pelvis non-OB COMPLETE US 04/25/2020 12:00:00 AM EST eC W1 ([facility]) Name Value Range Interpretation Code Description Data Ely rce(s) Supporting Document(s) [facility] Pelvis non-OB COMPLETE US eCW1 ([facility]) ID Date Data Source PAP REQUEST FOR SERVICE 04/22/2020 12:00:00 AM EST eCW1 ([facility]) Name Value Range Interpretation Code Description Data Ely rce(s) Supporting Document(s) PAP REQUEST FOR SERVICE eCW1 ( [facility]) ID Date Data Source [id number] 12/19/2019 12:00:00 AM EDT [facility] Giorgio Betts MD Patient Name: LATRICIA PAGAN [facility] Date [place] : [address] [address] Date of Exam: 12/19/2019PH#: Fax: [phone] EXAM: CERVICAL SPINE (4 VIEWS) XRAYCLINICAL INFORMATION: Disability determination.Four views.Comparison study: 11/12/2014.FINDINGS:In the interval since the 2015 prior study, the patient has undergonesurgical diskectomy and ventral fusion procedures. The cervical spine isfused at C3-4, C4-5, C5-6 and C6-7. There is straightening.Osteoarthritis facet hypertrophy is seen in the mid-cervical spinebilaterally, left more prominent than right. No malalignment.IMPRESSION:Extensive ventral diskectomy and cervical spine fusion as above.Straightening. Osteoarthritic facet disease. No acute bony abnormality.CLIVE Myers/Mackenzie hopkins for referring HUONG PAGAN to our office. Electronically Signed - ACRIDAD PEARCE MD 12/20/19 9:23 Name Value Range Interpretation Code Description Data Ely rce(s) Supporting Document(s) Procedure Social History Code Duration Value Status Description Data Source(s ) Smoking 04/22/2020 12:00:00 AM EST Never Smoker completed Never S moker eC1 ([facility]) Smoking 04/22/2020 12:00:00 AM EST Never Smoker completed Never S ravinder [facility] ([facility]) Vital Signs ID Date Data Source UNK Name Value Range Interpretation Code Description Data Source(s) Diastolic blood pressure 84 mm[Hg] 84 mm[Hg] eCW1 ([facility]) Systolic blood pressure 126 mm[Hg] 126 mm[Hg] e CW1 ([facility]) Body mass index (BMI) [Ratio] 40.42 kg/m2 40.42 kg/m2 [facility] ([facility]) Body height 63 [in_i] 63 [in_i] W1 ([facility]) Body weight 228.2 [lb_av] 228.2 [lb_av] eCW1 ([facility])
--- NOTE | 2020-07-31 17:04 | REP ---
INDICATION: DYSPNEA/COUGH. COMPARISON: 10/20/2018. TECHNIQUE: SINGLE PORTABLE AP VIEW OF THE CHEST WAS PERFORMED. FINDINGS: THERE IS NO ACUTE INFILTRATE OR PULMONARY EDEMA. LUNGS ARE CLEAR. HEART IS NOT SIGNIFICANTLY ENLARGED. MEDIASTINAL SILHOUETTE IS UNREMARKABLE. THE VISUALIZED OSSEOUS STRUCTURES ARE INTACT.Metallic fixation is seen in the lower cervical spine. IMPRESSION: NO ACUTE PULMONARY DISEASE. <Electronically signed by Rolando Pereira > 07/31/20 [id number]
--- OUTSIDE RECORDS SUMMARY | 2020-07-31 17:23 | CCD ---
Author Author [facility] Organization [facility] Address Unknown Phone Unavailable Care Team Providers Care Assignment Manager Name Role Phone MARCO ANTONIO GARCIA MD [...] ANTONIO GARCIA MD Unavailable Unavailable MARCO ANTONIO AGRCIA MD Unavailable Unavailable MARCO ANTONIO GARCIA MD [...] is protected by Article 27-F of the [facility] Public Health law. If you continue you may have access to information: Regarding HIV / AIDS; Provided by facilities licensed or operated by the [facility] Office of Mental Health; or Provided by the [facility] Office for People With Developmental Disabilities. If such information is present, then the following [facility] mandated warning applies: This information has been [...] law may result in a fine or mcfp sentence or both. A general authorization for [...] Date Indications Data Source(s ) Unknown [address] [facility] [address] 04/24/2020 12:00:00 AM EST eCW1 ([facility]) Outpatient [address] [facility] [address] 04/22/2020 12:00:00 AM EST eCW1 ([facility]) Outpatient Referrer: Giorgio Betts MD 12/19/2019 11:18:00 A M EDT [facility] Outpatient Referrer: Giorgio Betts MD 12/19/2019 11:08:00 A M EDT [facility] Outpatient Referrer: Giorgio Betts MD 12/19/2019 11:02:00 A M EDT [facility] Outpatient Referrer: MARCO ANTONIO GARCIA MD 08/21/2019 04:03:0 0 PM EST [facility] Insurance Providers Payer name Policy type / Coverage type Policy ID Covered democrat ID Covered democrat's relationship to stephen Policy Stephen Plan Information [facility] COMMUNITY PLAN MCDO [id number] SP [id number] [facility] O [id number] S [id number] [facility] [id number] SP [id number] 'S ADMINISTRATION [id number] SP [id number] [facility] O UNAVAILABLE S UNAVAILABLE [facility] [id number] S [id number] [facility] COMMUNITY [facility]AN XIX [id number] 18 [id number] Veterans Choice PRG-Vacaa Medigap Part B [id number] Self [id number] [facility] Community Plan Commercial [id number] Self [id number] Veterans Choice PRG-Vacaa Medigap Part B [id number] Self [id number] [facility] Health Maintenance Organization (HMO) [id number] Self [id number] Veterans Choice PRG-Vacaa Medigap Part B [id number] Self [id number] [facility] Maintenance Organization (HMO) [id number] Self [id number] [facility] [id number] SP [id number] PMA MANAGEMENT [employer] [facility] O [id number] S [id number] [facility] Maintenance Organization (HMO) [id number] Self [id number] [facility] Maintenance Organization (HMO) [id number] Self [id number] [facility] O [id number] S [id number] [facility] Maintenance Organization (HMO) [id number] Self [id number] [facility] Maintenance Organization (HMO) [id number] Self [id number] [facility] Maintenance Organization (HMO) [id number] Self [id number] Veterans Choice PRG-Vacaa Medigap Part B [id number] Self [id number] [facility] Community Plan Commercial [id number] Self [id number] [facility] Maintenance Organization (HMO) [id number] Self [id number] [facility] COMMUNITY PLAN MCDO [id number] SP [id number] [facility] Maintenance Organization (HMO) [id number] Self [id number] [facility] Maintenance Organization (HMO) [id number] Self [id number] Veterans Choice PRG-Vacaa Commercial [id number] Self [id number] [facility] Maintenance Organization (HMO) [id number] Self [id number] SELF PAY ONLY UNAVAILABLE SP UNAV AILABLE 'S ADMINISTRATION [id number] SP [id number] [facility] CHOICE [id number] SP [id number] [facility] VA CHOICE UNAVAILABLE SP UNAVAILABLE [facility] CHOICE UNAVAILABLE SP UNAVAILABLE [facility] ATT:CASSANDRA [id number] SP [id number] OTHER1 [id number] SP [id number] SELF PAY UNAVAILABLE UNAVAILA BLE P UNAVAILABLE UNAVAILA BLE 'S ADMINISTRATION [facility] SP [facility] P [id number] S [id number] [employer] COMP [id number] SP [id number] OTHER WORKERS COMPENSATION [id number] SP [id number] [facility]/136E [id number] SP [id number] Problems, Conditions, and Diagnoses Code Display Name Description Problem Type Effective Dates Data Source(s) N95.0 99990585 Postmenopausal bleeding Problem 04/22/2020 1 2:00:00 AM EST eCW1 ([facility]) Results ID Date Data Source [id number] 04/27/2020 11:55:00 AM EST [facility] Name Value Range Interpretation Code Description Data Ely rce(s) Supporting Document(s) SARS coronavirus 2 RNA [facility] This lab was ordered by [facility] and reported by [facility]. ID Date Data Source WWBC Pelvis non-OB COMPLETE US 04/25/2020 12:00:00 AM EST eC W1 ([facility]) Name Value Range Interpretation Code Description Data Ely rce(s) Supporting Document(s) WWBC Pelvis non-OB COMPLETE US eCW1 ([facility]) ID Date Data Source PAP REQUEST FOR SERVICE 04/22/2020 12:00:00 AM EST eCW1 ([facility]) Name Value Range Interpretation Code Description Data Ely rce(s) Supporting Document(s) PAP REQUEST FOR SERVICE eCW1 ( [facility]) ID Date Data Source [id number] 12/19/2019 12:00:00 AM EDT [facility] Giorgio Betts MD Patient Name: LATRICIA PAGAN [facility] Date [place] : [address] [address] Date of Exam: 12/19/2019PH#: Fax: [phone] EXAM: CERVICAL SPINE (4 VIEWS) XRAYCLINICAL INFORMATION: Disability determination.Four views.Comparison study: 11/12/2014.FINDINGS:In the interval since the 2014 prior study, the patient has undergonesurgical diskectomy [...] PAGAN to our office. Electronically Signed - CARIDAD PEARCE MD 12/20/19 9:23 Name Value Range Interpretation Code Description Data Ely rce(s) Supporting Document(s) Procedure Social History Code Duration Value Status Description Data Source(s ) Smoking 04/22/2020 12:00:00 AM EST Never Smoker completed Never S laker [facility] ([facility]) Smoking 04/22/2020 12:00:00 AM EST Never Smoker completed Never S ravinder [facility] ([facility]) Vital Signs ID Date Data Source UNK Name Value Range Interpretation Code Description Data Source(s) Diastolic blood pressure 84 mm[Hg] 84 mm[Hg] eCW1 ([facility]) Systolic blood pressure 126 mm[Hg] 126 mm[Hg] e CW1 ([facility]) Body mass index (BMI) [Ratio] 40.42 kg/m2 40.42 kg/m2 W1 ([facility]) Body height 63 [in_i] 63 [in_i] W1 ([facility]) Body weight 228.2 [lb_av] 228.2 [lb_av] eCW1 ([facility])
[2020-07-31] MEDS ORDERED: NS 1,000 ML IV ONE ×2 (17:45→22:45)
[2020-07-31 17:47] LABS: BASO % 0.2 % (0.0-1.0); EOS # 0.1 10^3/uL (0.0-0.5); EOS % 0.7 % (0.0-3.0); HEMATOCRIT 41.2 % (36.0-47.0); HEMOGLOBIN 13.3 g/dl (12.0-15.5); LYMPH # 3.2 10^3/uL (1.5-5.0); LYMPH % 16.2 % (24.0-44.0); MEAN CORPUSCULAR HGB CONC 32.3 g/dl (32.0-36.5); MONO # 1.1 10^3/uL (0.0-0.8); MONO % 5.5 % (0.0-5.0); NEUTROPHILS % 76.8 % (36.0-66.0); PLATELET COUNT, AUTOMATED 328 10^3/uL (150-450); RED BLOOD COUNT 4.43 10^6/uL (4.00-5.40); WHITE BLOOD COUNT 19.6 10^3/uL (4.0-10.0)
[2020-07-31] MEDS ORDERED: LIDOCAINE W/EPINEPHRINE 1% 20ML VIAL SC ONE (18:00)
[2020-07-31 18:21] LABS: ERYTHROCYTE SEDIMENTATION RATE 55 mm/hr (0-30)
[2020-07-31 18:43] LABS: ALBUMIN 3.5 GM/DL (3.2-5.2); ALT/SGPT 125 U/L (12-78); BILIRUBIN,DIRECT < 0.1 MG/DL (0.0-0.2); BILIRUBIN,TOTAL 0.2 MG/DL (0.2-1.0); BLOOD UREA NITROGEN 10 MG/DL (7-18); C REACTIVE PROTEIN QUANTITATIV 5.25 MG/DL (0.00-0.30); CALCIUM LEVEL 9.3 MG/DL (8.5-10.1); CARBON DIOXIDE LEVEL 30 MEQ/L (21-32); CHLORIDE LEVEL 99 MEQ/L (98-107); CK-MB VALUE MASS < 1.0 NG/ML (<3.6); CPK CREATINE PHOSPHOKINASE 64 U/L (26-192); CREATININE FOR GFR 0.69 MG/DL (0.55-1.30); GLOMERULAR FILTRATION RATE > 60.0 (>51); GLUCOSE, FASTING 116 MG/DL (70-100); MB/CK RELATIVE INDEX 1.56 (< OR =4); POTASSIUM SERUM 4.1 MEQ/L (3.5-5.1); SODIUM LEVEL 137 MEQ/L (136-145); TOTAL PROTEIN 7.6 GM/DL (6.4-8.2); TROPONIN I < 0.02 NG/ML (< 0.10)
[2020-07-31] MEDS ORDERED: MORPHINE 2 MG/ML 1ML VIAL (J2270) IV PRN (18:45)
[2020-07-31] MEDS ORDERED: MORPHINE 2 MG/ML 1ML VIAL (J2270) As Ordered ONE (18:46)
[2020-07-31] MEDS ORDERED: CEFTAROLINE FOSAMIL 600 MG in D5W MINI-BAG PLUS 50 ML IV ONE (19:00)
[2020-07-31] MEDS ORDERED: KETOROLAC 30 MG/ML 1ML VIAL IV ONE (19:30)
--- NOTE | 2020-07-31 19:40 | ECGEPIP ---
[facility] - ED Test Date: 2020-07-31 Pat Name: HUONG SHIRLEY Department: Room: - Gender: Female Restrictive Preparation Operator: : 1970 Requested By: MAGDALENA Tejada Order Number: [id number] Reading MD: Cruz Traylor Measurements Intervals [place] Rate: 127 P: 32 ND: 145 QRS: 26 QRSD: 95 T: 9 QT: 301 QTc: 439 Interpretive Statements SINUS TACHYCARDIA INCOMPLETE RIGHT BUNDLE BRANCH BLOCK NSTTW ABNORMALITY(S) SIMILAR TO 01/13/15 Electronically Signed on 07-31-2020 19:40:43 EST by Cruz Traylor
[2020-07-31] MEDS ORDERED: NORT50CA PO (20:19)
[2020-07-31] MEDS ORDERED: METF-838 PO (20:19)
[2020-07-31] MEDS ORDERED: INSULIN SC (20:19)
--- NOTE | 2020-07-31 20:42 | HPEPDOC ---
General Date of Admission 07/31/2020 Date of Service: Jul 31, 2020 Chief Complaint The patient is a 49-year-old female admitted with a reason for visit of Cold Symptoms. Source: Patient Exam Limitations: No limitations Timing/Duration: Day(s) (2) Severity: Mild, Moderate Associated Symptoms: Cough, Headaches, Nausea, Other (chest pressure) History of Present Illness Patient is a 49 yo female with hx of asthma presented to [facility] ED due to right sided posterior neck pain with erythema which started since yesterday. She reported the neck swelling started with smaller size and gradually enlarging, currently located in right posterior neck region without crossing midline but with radiation down to right anterior neck region. She also reported neck stiffness and photophobia. She reported 9/10 throbbing frontal headache as well, reported hx of migraine but thinks the severity is higher than usual. She denies any numbness, tingling, loss of sensation, of focal neurological symptoms. She denies any dysphagia, sore throat, difficulty opening mouth/speaking. She has dogs and cats at home but she denies being bitten or scratched by the pets. She denies any lymph node enlargement she felt in her neck. Nausea without vomiting. She reported one day of non-productive cough without fever or chills. Denies dyspnea. Denies sick contact. She is not a smoker and no one smokes at home. She reported hx of recurrent bronchitis. She was seen in urgent care earlier but was advised to come to ED due to ox sat of 88% on RA. She has not taken any prednisone or abx for her cough yet. She reported intermittent chest pressure in pre-cordial region which started around noon time today while resting. Reported chest pressure is still present. Alleviating factor including resting. Aggravating factor including talking and activity. She reported she had similar chest pressure before when she had bronchitis in the past. She denies any chest pain, palpitation, or dyspnea. Home Medications Scheduled Alogliptin Benzoate (Nesina) 25 Mg Tablet, 25 MG PO DAILY, (Reported) Budesonide/Formoterol (Symbicort 160-4.5 Mcg Inhaler) 6 Gm Hfa.aer.ad, 2 PUFF INH BID, (Reported) Cetirizine HCl (Cetirizine HCl) 10 Mg Tablet, 5 MG PO DAILY, (Reported) Cholecalciferol (Vitamin D3) (Vitamin D3) 1,000 Unit Tablet, 2,000 UNITS PO DAILY, (Reported) Insulin Glargine (Lantus) 100 Unit/1 Ml Vial, 10 UNITS SC QHS, (Reported) Metformin HCl (Metformin HCl ER) 500 Mg Tab.er.24h, 1,000 MG PO BID, (Reported) Multivitamins (Thera M Plus Tablet) 1 Each Tablet, 1 TAB PO DAILY, (Reported) Nortriptyline HCl (Nortriptyline HCl) 50 Mg Capsule, 50 MG PO DAILY, (Reported) Omeprazole (Omeprazole) 40 Mg Capsule.dr, 40 MG PO DAILY, (Reported) Scheduled PRN Fluticasone Propionate (Flonase Allergy Relief) 9.9 Ml Sanford.susp, 2 SPRAYS NA DAILY PRN for NASAL CONGESTION, (Reported) Hydrocodone/Acetaminophen (Hydrocodone-Acetamin 5-325 mg) 1 Each Tablet, 1 TAB PO 5XD PRN for PAIN, (Reported) Hydroxyzine HCl (Hydroxyzine HCl) 10 Mg Tablet, 10 MG PO BID PRN for ANXIETY, (Reported) Allergies Coded Allergies: No Known Allergies (Unverified , 02/01/18) Past Medical History Medical History Chronic back pain Chronic neck pain Asthma DM type 2 Depression Neck soft tissue infection hx MRSA infection Seasonal allergies Irregular cycles Surgical History D&C C3-C7 Disc removed in 2017, done in [facility] Laminectomy L4-L5, done 10-12 years ago Cholecystectomy Right knee scope Left ankle fusion Family History Grandmother: [place] Father: Cancer Social History * Smoker: Denies Alcohol: Denies Drugs: denies Recent Travel/Sick Contacts: Denies: Recent sick contacts Pets in the home: Dog(s), Cat(s) Psychosocial History: Depression Lives at home with , [id number], and kids A-FIB/CHADSVASC A-FIB History Current/History of A-Fib/PAF?: No Review of Systems Constitutional: Denies: Chills, Fever Eyes: Reports: Other (no pain with eye movement) ENT: Reports: Head Aches, Other Symptoms (photophobia, neck stiffness, neck pain); Denies: Dysphagia, Sore Throat Skin: Reports: Rash; Denies: Bruising Pulmonary: Reports: Cough; Denies: Dyspnea, Pleuritic Chest Pain Cardiovascular: Reports: Other Symptoms (precordial chest pressure); Denies: Chest Pain, Palpitations Gastrointestinal: Reports: Nausea; Denies: Vomiting, Abdominal Pain, Diarrhea, Constipation, Hematochezia Genitourinary: Denies: Dysuria Hematologic: Denies: Bruising, Enlarged Lymph Nodes Musculoskeletal: Reports: Neck Pain Neurological: Denies: Numbness, Change in speech Psych: Reports: Depression; Denies: Anxiety Physical Examination General Exam: Positive: Alert, Cooperative, No Acute Distress Eye Exam: Positive: Conjunctiva & lids normal, EOMI; Negative: Sclera icteric ENT Exam: Positive: Atraumatic, Mucous membr. moist/pink, Pharynx Normal, Tongue Midline Neck Exam: Positive: Other (mild rotational ROM restriction due to pain) Chest Exam: Positive: Clear to auscultation, Normal air movement; Negative: Rales, Rhonchi, Wheezing, Diminished Heart Exam: Positive: Tachycardic, Regular Rhythm; Negative: Murmurs Telemetry: Positive: Sinus, Tachycardia Abdomen Exam: Positive: Normal bowel sounds, Soft Skin Exam: Positive: Rash, Other skin issue (soft tissue swelling with erythema, around 1.5cm in diameter on right posterior neck region) Neuro Exam: Positive: Normal Speech, Strength at 5/5 X4 ext, Normal Tone, Cranial Nerves 3-12 NL Psych Exam: Positive: Mental status NL, Mood NL, Memory Intact, Other (able to carry conversation) Vital Signs Vital Signs Date Time Temp Pulse Resp B/P (MAP) Pulse Ox O2 Delivery O2 Flow Rate FiO2 07/31/20 19:40 20 07/31/20 18:48 98 07/31/20 18:24 128 Room Air 07/31/20 18:15 183/102 (129) 07/31/20 16:24 97.9 Laboratory Data Labs 24H Laboratory Tests 2 07/31/20 17:32: Immature Granulocyte % (Auto) 0.6, Neutrophils (%) (Auto) 76.8H, Lymphocytes (%) (Auto) 16.2L, Monocytes (%) (Auto) 5.5H, Eosinophils (%) (Auto) 0.7, Basophils (%) (Auto) 0.2, Neutrophils # (Auto) 15.0H, Lymphocytes # (Auto) 3.2, Monocytes # (Auto) 1.1H, Eosinophils # (Auto) 0.1, Basophils # (Auto) 0.0, Nucleated Red Blood Cells % (auto) 0.0, Erythrocyte Sedimentation Rate 55H 07/31/20 17:37: Anion Gap 8, Glomerular Filtration Rate > 60.0, Calcium Level 9.3, Total Bilirubin 0.2, Direct Bilirubin < 0.1, Aspartate Amino Transf (AST/SGOT) 46H, Alanine Aminotransferase (ALT/SGPT) 125H, Alkaline Phosphatase 111, Total Creatine Kinase 64, Creatine Kinase MB < 1.0, Creatine Kinase MB Relative Index 1.56, Troponin I < 0.02, C-Reactive Protein, Quantitative 5.25H, Total Protein 7.6, Albumin 3.5, Albumin/Globulin Ratio 0.9L CBC/BMP Laboratory Tests 07/31/20 17:32 07/31/20 17:37 Microbiology Microbiology 07/31/20 Blood Culture, Received Pending 07/31/20 Respiratory Virus Panel (PCR) ([facility]) - Final, Complete 07/31/20 Blood Culture, Received Pending Assessment/Plan 1. Posterior neck soft tissue abscess/soft tissue infection -will start doxycycline IV as patient also has acute bronchitis, patient may require I&D in day time if no improvement with antibiotics -neck CT ordered -patient also reported photophobia and stiffneck with frontal headache, thus head CT is ordered although meningitis is less likely as pt has no fever and her CN2-12 exam is intact; neuro checks Q4H -Zofran with pain control 2. Sepsis due to soft tissue infection -2/4 SIRS with tachycardia and leukocytosis. Lactic acid level ordered. -On IV antibiotics 3. Acute bronchitis. -Non-productive cough without fever or chills. CXR showed no acute disease. -Start prednisone 40mg QD, doxycycline 100mg BID IV, xopenex PRN -Continuous pulse ox, oxygen therapy 4. Chest pressure likely 2/2 acute bronchitis, r/o ACS -First cardiac marker and EKG did not indicate ACS. Repeat cardiac marker and EKG ordered for 2200 -Tele monitor, continuous pulse ox, oxygen therapy 5. DM type 2 -Cont home med long acting insulin -SS insulin, hypoglycemia protocol, glucose checks 6. Depression -Cont home med Nortriptyline -Mood appears stable at time of admission DVT prophylaxis: lovenox, SCD, TEDS Plan / VTE VTE Prophylaxis Ordered?: Yes GME ATTESTATION My faculty preceptor for this patient encounter was physically present during the encounter and was fully available. All aspects of the patient interview, examination, medical decision making process, and medical care plan development were reviewed and approved by the faculty preceptor. The faculty preceptor is aware and concurs with the plan as stated in the body of this note and will attest to such by his/her cosignature. ATTENDING NOTE I, Howie Martinez DO, performed a history and physical examination of the patient and discussed his management with the resident, Kourtney Kent DO. I reviewed the resident's note and agree with the documented findings and plan of care. KOURTNEY KENT DO Jul 31, 2020 20:42 HOWIE MARTINEZ DO Aug 01, 2020 09:29
[2020-07-31] MEDS ORDERED: NS 1,000 ML IV SCH (20:45)
--- OUTSIDE RECORDS SUMMARY | 2020-07-31 20:55 | CCD ---
Author Author [facility] Organization [facility] Address Unknown Phone Unavailable Care Team Providers Care Senior Accounting Specialist Name Role Phone MARCO ANTONIO GARCIA MD [...] C Giorgio MD Unavailable Unavailable Roxane, C Goirgio MD Unavailable Unavailable Roxane, C Giorgio MD [...] is protected by Article 27-F of the [facility] Public Health law. If you continue you may have access to information: Regarding HIV / AIDS; Provided by facilities licensed or operated by the [facility] Office of Mental Health; or Provided by the [facility] Office for People With Developmental Disabilities. If such information is present, then the following [facility] mandated warning applies: This information has been [...] law may result in a fine or long-term sentence or both. A general authorization for [...] Date Indications Data Source(s ) Unknown [address] [address] 04/24/2020 12:00:00 AM EST eCW1 ([facility]) Outpatient [address] [address] 04/22/2020 12:00:00 AM EST eCW1 ([facility]) Outpatient Referrer: Giorgio Betts MD 12/19/2019 11:18:00 [...] relationship to stephen Policy Stephen Plan Information [facility] COMMUNITY PLAN MCDO [id number] SP [id number] [facility] O [id number] S [id number] [facility] [id number] SP [id number] 'S ADMINISTRATION [id number] SP [id number] [facility] PC O UNAVAILABLE S UNAVAILABLE [facility] [id number] S [id number] [facility] COMMUNITY PLAN XIX [id number] 18 [id number] Veterans Choice PRG-Vacaa Medigap Part B [id number] Self [id number] [facility] Community Plan Commercial [id number] Self [id number] Veterans Choice PRG-Vacaa Medigap Part B [id number] Self [id number] [facility] Health Maintenance Organization (HMO) [id number] Self [id number] Veterans Choice PRG-Vacaa Medigap Part B [id number] Self [id number] [facility] Health Maintenance Organization (HMO) [id number] Self [id number] [facility] [id number] SP [id number] PMA MANAGEMENT [employer] [facility] O [id number] S [id number] United HLCR/Community [facility] Maintenance Organization (HMO) [id number] Self [id number] [facility] Maintenance Organization (HMO) [id number] Self [id number] [facility] O [id number] S [id number] [facility] Maintenance Organization (HMO) [id number] Self [id number] [facility] Maintenance Organization (HMO) [id number] Self [id number] [facility] Maintenance Organization (HMO) [id number] Self [id number] Veterans Choice PRG-Vacaa Medigap Part B [id number] Self [id number] [facility] Community Plan Commercial [id number] Self [id number] [facility] Maintenance Organization (HMO) [id number] Self [id number] [facility] COMMUNITY PLAN MCDO [id number] SP [id number] [facility] Maintenance Organization (HMO) [id number] Self [id number] [facility] Maintenance Organization (HMO) [id number] Self [id number] Veterans Choice PRG-Vacaa Commercial [id number] Self [id number] [facility] Maintenance Organization (HMO) [id number] Self [id number] SELF PAY ONLY UNAVAILABLE SP UNAV AILABLE 'S ADMINISTRATION [id number] SP [id number] [facility]ALTH NET VA CHOICE [id number] SP [id number] HEALTH NET VA CHOICE UNAVAILABLE SP UNAVAILABLE [facility] CHOICE UNAVAILABLE SP UNAVAILABLE [facility] ATT:CASSANDRA [id number] SP [id number] OTHER1 [id number] SP [id number] SELF PAY UNAVAILABLE UNAVAILA BLE P UNAVAILABLE UNAVAILA BLE 'S ADMINISTRATION VA SP [facility] [place] P [id number] S [id number] [employer] WORKER COMP [id number] SP [id number] OTHER WORKERS COMPENSATION [id number] SP [id number] [facility]/136E [id number] SP [id number] Problems, Conditions, and Diagnoses Code Display Name Description Problem Type Effective Dates Data Source(s) N95.0 [id number] Postmenopausal bleeding Problem 04/22/2020 1 2:00:00 AM EST eCW1 ([facility]) Results ID Date Data Source [id number] 04/27/2020 11:55:00 AM EST [facility] Name Value Range Interpretation Code Description Data Ely rce(s) Supporting Document(s) SARS coronavirus 2 RNA [facility] This lab was ordered by [facility] and reported by [facility]. ID Date Data Source [facility] Pelvis non-OB COMPLETE US 04/25/2020 12:00:00 AM EST eC W1 ([facility]) Name Value Range Interpretation Code Description Data Ely rce(s) Supporting Document(s) [facility] Pelvis non-OB COMPLETE US eCW1 ([facility]) ID Date Data Source PAP REQUEST FOR SERVICE 04/22/2020 12:00:00 AM EST eCW1 ([facility]) Name Value Range Interpretation Code Description Data Ely rce(s) Supporting Document(s) PAP REQUEST FOR SERVICE eCW1 ( [facility]) ID Date Data Source [id number] 12/19/2019 12:00:00 AM EDT [facility] Giorgio Betts MD Patient Name: LATRICIA PAGAN [facility] [place] : [address] [address] Date of Exam: 12/19/2019PH#: Fax: [phone] EXAM: [...] AM EST Never Smoker completed Never S ctker [facility] ([facility]) Smoking 04/22/2020 12:00:00 AM EST Never Smoker completed Never S ravinder [facility] ([facility]) Vital Signs ID [...] Body height 63 [in_i] 63 [in_i] W1 ([facility]) Body weight 228.2 [lb_av] 228.2 [lb_av] eCW1 ([facility])
[2020-07-31 20:56] LABS: HCG, SERUM QUALITATIVE NEGATIVE (NEGATIVE)
[2020-07-31] MEDS ORDERED: ISOVUE-370 76% 100ML VIAL As Ordered ONE (20:59)
[2020-07-31] MEDS ORDERED: metFORMIN XR 500MG TAB *GLUCOPHAGE XR PO SCH (21:00)
[2020-07-31] MEDS ORDERED: LEVALBUTEROL HFA 45MCG/ACT 15 GM INHALER INH PRN (21:00)
[2020-07-31] MEDS: HumaLOG INSULIN (NovoLOG) PER UNIT SC SCH (21:00)
[2020-07-31] MEDS ORDERED: LEVEMIR (INSULIN DETEMIR) 1 UNITS/0.01ML SC SCH (21:00)
[2020-07-31] MEDS ORDERED: DEXTROSE 50% 50 ML SYRINGE IV PRN (21:15)
[2020-07-31] MEDS ORDERED: ONDANSETRON 4 MG ORAL DISINTEGRATING TAB PO PRN (21:15)
[2020-07-31] MEDS ORDERED: GLUCAGON INJ 1MG VIAL SC PRN (21:15)
[2020-07-31] MEDS ORDERED: GLUCOSE 4GM CHEW TABLET PO PRN (21:15)
[2020-07-31] MEDS ORDERED: HYDR-643 PO (21:36)
[2020-07-31] MEDS ORDERED: SYMB16INH INH (21:36)
[2020-07-31] MEDS ORDERED: VITMTA PO (21:36)
[2020-07-31] MEDS ORDERED: OMEP-221 PO (21:36)
[2020-07-31] MEDS ORDERED: INSULANT SC (21:36)
[2020-07-31] MEDS ORDERED: NESI25TA PO (21:36)
[2020-07-31] MEDS ORDERED: FLON1SPR (21:36)
[2020-07-31] MEDS ORDERED: HYDR-4571 PO (21:36)
[2020-07-31] MEDS ORDERED: CETI10TA8 PO (21:36)
[2020-07-31] MEDS ORDERED: D31000TA2 PO (21:36)
[2020-07-31] MEDS ORDERED: FLUTICASONE PROP 0.05% NASAL SPRAY 16 GM (FLONASE) PRN (21:45)
[2020-07-31] MEDS ORDERED: hydrOXYzine 10 MG TAB PO PRN (21:45)
--- NOTE | 2020-07-31 22:00 | REPVR ---
PROCEDURE INFORMATION: Exam: CT Head Without Contrast Exam date and time: 07/31/2020 9:09 PM Age: 49 years old Clinical indication: Pain; Headache; Additional info: Headache, photophobia, posterior neck soft tissue infection TECHNIQUE: Imaging protocol: Computed tomography of the head without contrast. Radiation optimization: All CT scans at this facility use at least one of these dose optimization techniques: automated exposure control; mA and/or kV adjustment per patient size (includes targeted exams where dose is matched to clinical indication); or iterative reconstruction. COMPARISON: Thyroid, ST head+neck US 08/14/2019 11:30 AM FINDINGS: Brain: There is no acute cortical infarction, intracranial hemorrhage or mass. Cerebral ventricles: No ventriculomegaly. Bones/joints: Unremarkable. No acute fracture. Paranasal sinuses: Visualized sinuses are unremarkable. No fluid levels. Mastoid air cells: Visualized mastoid air cells are well aerated. Soft tissues: Unremarkable. IMPRESSION: No acute intracranial findings. Electronically signed by: Giana Conde On 07/31/2020 21:59:59 PM
--- NOTE | 2020-07-31 22:13 | REPVR ---
PROCEDURE INFORMATION: Exam: CT Neck With Contrast Exam date and time: 07/31/2020 9:09 PM Age: 49 years old Clinical indication: Cellulitis of neck; Additional info: Cellulitis, question if abscess or deeper infection TECHNIQUE: Imaging protocol: Computed tomography images of the neck with intravenous contrast. Radiation optimization: All CT scans at this facility use at least one of these dose optimization techniques: automated exposure control; mA and/or kV adjustment per patient size (includes targeted exams where dose is matched to clinical indication); or iterative reconstruction. Contrast material: ISOVUE 370; Contrast volume: 75 ml; Contrast route: INTRAVENOUS (IV); COMPARISON: Thyroid, ST head+neck US 08/14/2019 11:30 AM FINDINGS: Nasopharynx: Unremarkable. Oropharynx: Unremarkable. No significant tonsillar enlargement. Hypopharynx: Unremarkable. Larynx: Unremarkable. Normal epiglottis. Retropharyngeal space: Unremarkable. Submandibular/Parotid glands: Normal. Glands are normal in size. Thyroid: Normal. No enlarged or calcified nodules. Lymph nodes: See "Soft tissues" finding. Trachea: Visualized trachea is unremarkable. Lungs: Unremarkable as visualized. Bones/joints: Anterior cervical fusion C3 through C7. Soft tissues: There is several enlarged lymph nodes right suboccipital scalp with surrounding soft tissue stranding superficial to the fascia overlying the paraspinous musculature extending anteriorly to the posterior margin of the right sternocleidomastoid muscle and into the posterior margin of the right carotid space. The largest lymph node is seen along its inferior margin measuring 1.8 cm series 301, image 44. IMPRESSION: Cellulitis right posterior neck from suboccipital extending inferiorly to the C3-C4 level. No abscess is identified. There is associated lymphadenopathy. Electronically signed by: Giana Conde On 07/31/2020 22:13:43 PM
[2020-07-31 22:25] VITALS: BP 146/92
[2020-07-31 22:27] LABS: CK-MB VALUE MASS < 1.0 NG/ML (<3.6); CPK CREATINE PHOSPHOKINASE 57 U/L (26-192); MB/CK RELATIVE INDEX 1.75 (< OR =4); TROPONIN I < 0.02 NG/ML (< 0.10)
[2020-07-31] MEDS: SYMBICORT 160/4.5MCG INHALER 6GM INH SCH (22:31)
[2020-07-31] MEDS: DOXYCYCLINE HYCLATE 100 MG in D5W MINI-BAG PLUS 100 ML IV SCH (22:55)
[2020-07-31] MEDS: HYDROMORPHONE HCL 0.5 MG/ 0.5 ML SYRINGE (J1170 PER 1) IV PRN (23:07)
[2020-08-01 00:09] VITALS: BP 139/88
[2020-08-01] MEDS ORDERED: NS 500 ML IV ONE (00:30)
[2020-08-01 01:45] VITALS: O2SAT 93
[2020-08-01] MEDS ORDERED: RAMELTEON 8 MG TAB (ROZEREM) PO ONE (02:30)
[2020-08-01] MEDS: HYDROMORPHONE HCL 0.5 MG/ 0.5 ML SYRINGE (J1170 PER 1) IV PRN (03:52)
[2020-08-01 06:00] VITALS: BP 141/84
[2020-08-01 06:51] LABS: ALBUMIN 2.7 GM/DL (3.2-5.2); ALT/SGPT 84 U/L (12-78); BILIRUBIN,TOTAL 0.4 MG/DL (0.2-1.0); BLOOD UREA NITROGEN 11 MG/DL (7-18); CALCIUM LEVEL 7.7 MG/DL (8.5-10.1); CARBON DIOXIDE LEVEL 28 MEQ/L (21-32); CHLORIDE LEVEL 104 MEQ/L (98-107); CREATININE FOR GFR 0.58 MG/DL (0.55-1.30); GLOMERULAR FILTRATION RATE > 60.0 (>51); GLUCOSE, FASTING 160 MG/DL (70-100); POTASSIUM SERUM 3.9 MEQ/L (3.5-5.1); SODIUM LEVEL 138 MEQ/L (136-145); TOTAL PROTEIN 5.9 GM/DL (6.4-8.2)
[2020-08-01] MEDS: SYMBICORT 160/4.5MCG INHALER 6GM INH SCH ×2 (07:20→20:24)
[2020-08-01] MEDS: DOXYCYCLINE HYCLATE 100 MG in D5W MINI-BAG PLUS 100 ML IV SCH (08:07)
[2020-08-01] MEDS: ENOXAPARIN 40MG/0.4ML SYRINGE (J1650 PER 10MG) SC SCH (08:07)
[2020-08-01] MEDS: VITAMIN D 1,000 INTERNATIONAL UNITS TABLET PO SCH (08:08)
[2020-08-01] MEDS: NORTRIPTYLINE 25 MG CAP PO SCH (08:08)
[2020-08-01] MEDS: MULTIVITAMINS/MINERALS THERAP 1 TAB PO SCH (08:08)
[2020-08-01] MEDS: OMEPRAZOLE 20 MG CAP PO SCH (08:08)
[2020-08-01] MEDS: CETIRIZINE (ZyrTEC) 10 MG TAB PO SCH (08:09)
[2020-08-01] MEDS: HumaLOG INSULIN (NovoLOG) PER UNIT SC SCH ×4 (08:09→20:27)
[2020-08-01] MEDS: LACTOBACILLUS ACIDOPHILUS CAP (BACID) PO SCH ×2 (08:42→17:25)
[2020-08-01] MEDS: KETOROLAC 30 MG/ML 1ML VIAL IV SCH ×2 (08:43→17:25)
[2020-08-01] MEDS: NORCO, ANEXSIA 5/325MG TABLET (HYDROcodone/ACETAMINOPHEN) PO PRN ×4 (08:43→23:24)
[2020-08-01] MEDS ORDERED: LEVEMIR (INSULIN DETEMIR) 1 UNITS/0.01ML SC SCH (09:00)
[2020-08-01] MEDS ORDERED: ENTER DRUG NAME HERE (PATIENT'S OWN MED) PO SCH (09:00)
[2020-08-01 09:01] LABS: HEMATOCRIT 35.6 % (36.0-47.0); HEMOGLOBIN 11.5 g/dl (12.0-15.5); MEAN CORPUSCULAR HGB CONC 32.3 g/dl (32.0-36.5); PLATELET COUNT, AUTOMATED 281 10^3/uL (150-450); RED BLOOD COUNT 3.83 10^6/uL (4.00-5.40); WHITE BLOOD COUNT 15.8 10^3/uL (4.0-10.0)
[2020-08-01 09:32] LABS: ALT/SGPT 91 U/L (12-78); BILIRUBIN,TOTAL 0.3 MG/DL (0.2-1.0); BLOOD UREA NITROGEN 9 MG/DL (7-18); CALCIUM LEVEL 7.8 MG/DL (8.5-10.1); CARBON DIOXIDE LEVEL 27 MEQ/L (21-32); CHLORIDE LEVEL 103 MEQ/L (98-107); CREATININE FOR GFR 0.58 MG/DL (0.55-1.30); GLOMERULAR FILTRATION RATE > 60.0 (>51); GLUCOSE, FASTING 178 MG/DL (70-100); POTASSIUM SERUM 3.6 MEQ/L (3.5-5.1); SODIUM LEVEL 137 MEQ/L (136-145); TOTAL PROTEIN 7.1 GM/DL (6.4-8.2)
[2020-08-01] MEDS: CLINDAMYCIN 600 MG in IV 1 EA IV SCH ×3 (09:39→21:03)
[2020-08-01 10:00] VITALS: BP 138/84
[2020-08-01 14:00] VITALS: BP 132/71
--- NOTE | 2020-08-01 14:38 | IPNPDOC ---
Date Seen The patient was seen on 08/01/20. Progress Note SUBJECTIVE: Pain still severe this AM on right neck, added home narcotics + toradol for antiinflammatory coverage. CT neck neg for abscess. WBC still elevated, switched to IV clindamycin. Denies dysphagia, chest pain, fevers, chills, shortness of breath. OBJECTIVE: PHYSICAL EXAMINATION: VS: Please see below CONSTITUTIONAL: No acute distress, resting comfortably, AAO x 3 EYES: PERRLA, EOM intact HENT, MOUTH: Normocephalic, atraumatic, moist mucous membranes NECK: Right neck slightly more swollen than left, tenderness to palpation to right neck, posterior auricular LN- slightly swollen as well. Large indurated area (not an abscess according to CT) occipital area of right neck/head, tender to touch, slightly erythematous. no JVD, no carotid bruit CV: Sinus tachycardia , S1S2 normal, no murmurs/rubs/gallops RESPIRATORY: Clear to auscultation bilaterally, no rales/rhonchi/wheezes GI: BS positive in 4 quadrants, soft, nontender, nondistended, no rebound or guarding, no organomegaly : Deferred MUSCULOSKELETAL: Normal ROM. No cyanosis, clubbing, swelling, joint deformity, extremity edema INTEGUMENTARY: See above under neck, otherwise intact, no rashes NEUROLOGIC: Cranial Nerves II-XII are intact, no focal deficits PSYCHIATRIC: Mood and affect are normal CURRENT MEDICATIONS: Please see below LABORATORY DATA: Please see below IMAGING: CT neck with contrast: Cellulitis right posterior neck from suboccipital extending inferiorly to the C3-C4 level. No abscess is identified. There is associated lymphadenopathy. ASSESSMENT: 49 y/o F admitted for posterior right neck cellulitis, sepsis, shortness of breath. PLAN: Posterior right neck cellulitis, sepsis -CT neck ruled out abscess but there appears to be large indurated area (nonfluctuant), tender at base of right occipital/neck area which should be watched. -D/kat PO doxy, started IV clindamycin -WBC slightly improved; however, still tachycardia, LA pending and was previously elevated, afebrile currently -Started home narcotics, IV toradol for antiinflammatory coverage -Follow up progress, goal is transition to PO abx SOB possibly viral URI- improved -Non-productive cough without fever or chills, doing well on RA -CXR showed no acute disease -Resp panel neg -CTAB currently -D/c prednisone and doxy, c/w xopenex PRN Transaminitis, minimal and improving -Monitor CMP daily Chest pressure likely 2/2 URI- resolved. -Trop neg, not ACS. DM type 2 -C/w insulins -SS insulin, hypoglycemia protocol, glucose checks Depression -Cont home med Nortriptyline -Mood appears stable at time of admission DVT prophylaxis: -lovenox, SCD, TEDS DISPOSITION: C/w treatment plan above. Plan is discharge home when medically improved. VS, I&O, 24H, Fishbone Vital Signs/I&O Vital Signs Date Time Temp Pulse Resp B/P (MAP) Pulse Ox O2 Delivery O2 Flow Rate FiO2 08/01/20 10:00 97.7 111 18 138/84 (102) 95 Room Air I&O- Last 24 Hours up to 6 AM 08/01/20 05:59 Intake Total 1830 ml Output Total 100 ml Balance 1730 ml Laboratory Data 24H LABS Laboratory Tests 2 07/31/20 17:32: Immature Granulocyte % (Auto) 0.6, Neutrophils (%) (Auto) 76.8H, Lymphocytes (%) (Auto) 16.2L, Monocytes (%) (Auto) 5.5H, Eosinophils (%) (Auto) 0.7, Basophils (%) (Auto) 0.2, Neutrophils # (Auto) 15.0H, Lymphocytes # (Auto) 3.2, Monocytes # (Auto) 1.1H, Eosinophils # (Auto) 0.1, Basophils # (Auto) 0.0, Nucleated Red Blood Cells % (auto) 0.0, Erythrocyte Sedimentation Rate 55H 07/31/20 17:37: Anion Gap 8, Glomerular Filtration Rate > 60.0, Calcium Level 9.3, Total Bilirubin 0.2, Direct Bilirubin < 0.1, Aspartate Amino Transf (AST/SGOT) 46H, Alanine Aminotransferase (ALT/SGPT) 125H, Alkaline Phosphatase 111, Total Creatine Kinase 64, Creatine Kinase MB < 1.0, Creatine Kinase MB Relative Index 1.56, Troponin I < 0.02, C-Reactive Protein, Quantitative 5.25H, Total Protein 7.6, Albumin 3.5, Albumin/Globulin Ratio 0.9L, Human Chorionic Gonadotropin, Qual NEGATIVE 07/31/20 20:35: Methicillin-Resist S.aureus DNA PCR NOT DETECTED 07/31/20 21:36: Total Creatine Kinase 57, Creatine Kinase MB < 1.0, Creatine Kinase MB Relative Index 1.75, Troponin I < 0.02, Lactic Acid Level 2.4*H 07/31/20 22:49: Bedside Glucose (Misc Panel) 196H 08/01/20 02:05: Lactic Acid Followup at 4 Hours 2.2*H 08/01/20 05:35: Anion Gap 6L, Glomerular Filtration Rate > 60.0, Calcium Level 7.7#L, Total Bilirubin 0.4#, Aspartate Amino Transf (AST/SGOT) 28, Alanine Aminotransferase (ALT/SGPT) 84H, Alkaline Phosphatase 94, Total Protein 5.9#L, Albumin 2.7#L, Albumin/Globulin Ratio 0.8L 08/01/20 08:43: Anion Gap 7L, Glomerular Filtration Rate > 60.0, Calcium Level 7.8L, Total Bilirubin 0.3, Aspartate Amino Transf (AST/SGOT) 30, Alanine Aminotransferase (ALT/SGPT) 91H, Alkaline Phosphatase 94, Total Protein 7.1#, Albumin 3.0L, Albumin/Globulin Ratio 0.7L, Nucleated Red Blood Cells % (auto) 0.0, Lactic Acid Level 1.9 08/01/20 11:38: Bedside Glucose (Misc Panel) 183H CBC/BMP Laboratory Tests 07/31/20 17:32 07/31/20 17:37 08/01/20 05:35 08/01/20 08:43 Microbiology Microbiology 07/31/20 Blood Culture, Received Pending 07/31/20 Respiratory Virus Panel (PCR) ([facility]) - Final, Complete 07/31/20 Blood Culture, Received Pending Current Medications Current Medications Medications (Trade) Dose Ordered Sig/Rodger Route PRN Reason Start Time Stop Time Status Last Admin Dose Admin Acetaminophen/ Hydrocodone Bitart ([place], Anexsia 5/325) 1 tab 5XD PRN PO PAIN 08/01/20 08:15 08/01/20 08:43 Budesonide/ Formoterol Fumarate (Symbicort 160/ 4.5mcg) 2 puff RBID INH 07/31/20 20:00 08/01/20 07:20 Cetirizine HCl (ZyrTEC) 5 mg DAILY PO 08/01/20 09:00 08/01/20 08:09 Clindamycin Phosphate 600 mg/ IV Miscellaneous Supplies 50 ml @ 100 mls/hr Q6H IV 08/01/20 10:00 08/01/20 09:39 Dextrose (Dextrose 50%) 25 ml ASDIRECTED PRN IV SEE LABEL COMMENTS 07/31/20 21:15 Doxycycline Hyclate 100 mg/ Dextrose 100 ml @ 100 mls/hr Q12H IV 07/31/20 21:00 08/01/20 08:10 DC 08/01/20 08:07 Enoxaparin Sodium (Lovenox) 40 mg DAILY SC 08/01/20 09:00 08/01/20 08:07 Fluticasone Propionate (Flonase 0.05% Nasal [place]) 2 spray DAILY PRN NA NASAL CONGESTION 07/31/20 21:45 Glucagon (Glucagon) 1 mg ASDIRECTED PRN SC SEE LABEL COMMENTS 07/31/20 21:15 Glucose (Glucose) 16 GM ASDIRECTED PRN PO SEE LABEL COMMENTS 07/31/20 21:15 Home Med (Med Rec Complete!) ASDIRECTED XX 07/31/20 20:30 07/31/20 20:21 DC Hydromorphone HCl (Dilaudid) 0.5 mg Q30M PRN IV MODERATE PAIN (PS 5-7) 07/31/20 19:30 08/01/20 03:52 DC 08/01/20 03:52 Hydroxyzine HCl (Atarax) 10 mg BID PRN PO ANXIETY 07/31/20 21:45 Insulin Detemir (Levemir Insulin) 10 units DAILY SC 08/01/20 09:00 08/01/20 08:10 DC 08/01/20 08:09 Insulin Detemir (Levemir Insulin) 10 units DAILY@2100 SC 07/31/20 21:00 07/31/20 21:17 DC Insulin Detemir (Levemir Insulin) 10 units QHS SC 08/02/20 21:00 Insulin Human Lispro (HumaLOG INSULIN) SEE PROTOCOL TABLE AC SC 08/01/20 07:30 08/01/20 12:19 Insulin Human Lispro (HumaLOG INSULIN) SEE PROTOCOL TABLE QHS SC 07/31/20 21:00 Ketorolac Tromethamine (ToRADol) 15 mg Q8H IV 08/01/20 09:00 08/06/20 08:59 08/01/20 08:43 Lactobacillus Acidophilus (Bacid) 1 ea BIDWM PO 08/01/20 08:00 08/01/20 08:42 Levalbuterol HCl (Xopenex Hfa) 2 puff Q4HP PRN INH SOB/COUGH 07/31/20 21:00 Metformin HCl (Glucophage Xr) 1,000 mg BID PO 07/31/20 21:00 07/31/20 21:19 DC Miscellaneous (Unresolved Patient Own Med Order) SEE LABEL COMMENTS DAILY XX 07/31/20 09:00 Morphine Sulfate (Morphine Sulfate Inj) 2 mg Q30M PRN IV MODERATE PAIN (PS 5-7) 07/31/20 18:45 07/31/20 19:22 DC 07/31/20 18:48 Multivitamins (Theragram-M) 1 tab DAILY PO 08/01/20 09:00 08/01/20 08:08 Nortriptyline HCl (Pamelor) 50 mg DAILY PO 08/01/20 09:00 08/01/20 08:08 Omeprazole (PriLOSEC) 40 mg DAILY PO 08/01/20 09:00 08/01/20 08:08 Ondansetron HCl (Zofran Odt) 4 mg Q4HP PRN PO NAUSEA OR VOMITING 07/31/20 21:15 Patient Own Medication (Patient'S Own Med) 1 TAB = 25MG ALOGLIPT... DAILY PO 08/02/20 09:00 Patient Own Medication (Patient'S Own Med) 25 ea DAILY PO 08/01/20 09:00 07/31/20 21:48 DC Prednisone (Deltasone) 40 mg DAILY PO 08/01/20 21:00 Sodium Chloride 1,000 ml @ 100 mls/hr Q10H IV 07/31/20 20:45 08/01/20 06:44 DC 08/01/20 00:03 Vitamin D (Vitamin D) 2,000 units DAILY PO 08/01/20 09:00 08/01/20 08:08 Allergies Coded Allergies: No Known Allergies (Unverified , 02/01/18) Daina Campbell MD Aug 01, 2020 14:38
[2020-08-01] MEDS ORDERED: predniSONE 20 MG TAB PO SCH (21:00)
[2020-08-01 22:00] VITALS: BP 119/79
[2020-08-02] MEDS: KETOROLAC 30 MG/ML 1ML VIAL IV SCH ×2 (01:02→09:35)
[2020-08-02 02:00] VITALS: BP 125/77
[2020-08-02] MEDS: CLINDAMYCIN 600 MG in IV 1 EA IV SCH ×2 (04:03→09:36)
[2020-08-02 06:00] VITALS: BP 119/59
[2020-08-02 06:20] VITALS: O2SAT 98
[2020-08-02 06:40] LABS: ALBUMIN 2.6 GM/DL (3.2-5.2); ALT/SGPT 64 U/L (12-78); BILIRUBIN,TOTAL 0.2 MG/DL (0.2-1.0); BLOOD UREA NITROGEN 11 MG/DL (7-18); CALCIUM LEVEL 8.5 MG/DL (8.5-10.1); CARBON DIOXIDE LEVEL 30 MEQ/L (21-32); CHLORIDE LEVEL 106 MEQ/L (98-107); CREATININE FOR GFR 0.68 MG/DL (0.55-1.30); GLOMERULAR FILTRATION RATE > 60.0 (>51); GLUCOSE, FASTING 180 MG/DL (70-100); POTASSIUM SERUM 3.8 MEQ/L (3.5-5.1); SODIUM LEVEL 141 MEQ/L (136-145); TOTAL PROTEIN 6.5 GM/DL (6.4-8.2)
[2020-08-02] MEDS: SYMBICORT 160/4.5MCG INHALER 6GM INH SCH (08:07)
[2020-08-02] MEDS ORDERED: CLIN150C15 PO ×2 (08:26→11:16)
[2020-08-02] MEDS ORDERED: RISATAB3 PO (08:26)
[2020-08-02] MEDS ORDERED: TRAM50TA2 PO (08:29)
[2020-08-02 08:50] LABS: HEMATOCRIT 36.6 % (36.0-47.0); HEMOGLOBIN 11.2 g/dl (12.0-15.5); MEAN CORPUSCULAR HEMOGLOBIN 29.2 pg (27.0-33.0); MEAN CORPUSCULAR HGB CONC 30.6 g/dl (32.0-36.5); MEAN CORPUSCULAR VOLUME 95.3 fl (80.0-96.0); PLATELET COUNT, AUTOMATED 273 10^3/uL (150-450); RED BLOOD COUNT 3.84 10^6/uL (4.00-5.40); WHITE BLOOD COUNT 13.3 10^3/uL (4.0-10.0)
[2020-08-02] MEDS: HumaLOG INSULIN (NovoLOG) PER UNIT SC SCH (09:34)
[2020-08-02] MEDS: ENOXAPARIN 40MG/0.4ML SYRINGE (J1650 PER 10MG) SC SCH (09:35)
[2020-08-02] MEDS: NORTRIPTYLINE 25 MG CAP PO SCH (09:35)
[2020-08-02] MEDS: CETIRIZINE (ZyrTEC) 10 MG TAB PO SCH (09:35)
[2020-08-02] MEDS: VITAMIN D 1,000 INTERNATIONAL UNITS TABLET PO SCH (09:36)
[2020-08-02] MEDS: OMEPRAZOLE 20 MG CAP PO SCH (09:36)
[2020-08-02] MEDS: MULTIVITAMINS/MINERALS THERAP 1 TAB PO SCH (09:36)
[2020-08-02] MEDS: LACTOBACILLUS ACIDOPHILUS CAP (BACID) PO SCH (09:36)
[2020-08-02 10:00] VITALS: BP 140/87
[2020-08-02] MEDS ORDERED: PROB250C PO (11:16)
--- NOTE | 2020-08-02 16:53 | DS.PDOC ---
Discharge Summary General Date of Admission Jul 31, 2020 at 20:42 Date of Discharge 08/02/20 Attending Physician: Daina Campbell MD Discharge Summary HPI: Patient is a 49 yo female with hx of asthma presented to [facility] ED due to right sided posterior neck pain with erythema which started since yesterday. She reported the neck swelling started with smaller size and gradually enlarging, currently located in right posterior neck region without crossing midline but with radiation down to right anterior neck region. She also reported neck stiffness and photophobia. She reported 9/10 throbbing frontal headache as well, reported hx of migraine but thinks the severity is higher than usual. She denies any numbness, tingling, loss of sensation, of focal neurological symptoms. She denies any dysphagia, sore throat, difficulty opening mouth/speaking. She has dogs and cats at home but she denies being bitten or scratched by the pets. She denies any lymph node enlargement she felt in her neck. Nausea without vomiting.She reported one day of non-productive cough without fever or chills. Denies dyspnea. Denies sick contact. She is not a smoker and no one smokes at home. She reported hx of recurrent bronchitis. She was seen in urgent care earlier but was advised to come to ED due to ox sat of 88% on RA. She reported intermittent chest pressure in pre-cordial region which started around noon time today while resting. Reported chest pressure is still present. Alleviating factor including resting. Aggravating factor including talking and activity. She reported she had similar chest pressure before when she had bronchitis in the past. She denies any chest pain, palpitation, or dyspnea. In ER, VS showed incr HR, LA elevated. CT neck, no abscess but ST swelling, cellulitis. Patient was admitted for right neck cellulitis, acute bronchitis. HOSPITAL COURSE: Posterior right neck cellulitis, sepsis slowly improved with addition of IV clindamycin. CT neck ruled out abscess but there appears to be large indurated area (nonfluctuant), tender at base of right occipital/neck area which improved. WBC also slowly decreased, LA resolved, remained afebrile, pain improved with addition of home narcotic and IV toradol. BCx showed NG, MRSA neg. Shortness of breath was likely 2/2 to viral URI and steroids were not needed or continued. CXR showed no acute disease, Resp panel neg. Transaminitis was present on admission but this resolved by 08/02/20. By 08/02/20 patient was much improved. She wad discharged home with 7 days of PO clindamycin, probiotics and instructions to f/u with PCP after holiday weekend. PAST MEDICAL HISTORY: Chronic neck pain Asthma DM type 2 Depression Neck soft tissue infection hx MRSA infection Seasonal allergies Irregular cycles PAST SURGICAL HISTORY: D&C C3-C7 Disc removed in 2017, done in [place] Laminectomy L4-L5, done 10-12 years ago Cholecystectomy Right knee scope Left ankle fusion FAMILY HX: Grandmother: [place] Father: Cancer SOCIAL HX: Smoker: Denies Alcohol: Denies Drugs: denies Recent Travel/Sick Contacts: Denies: Recent sick contacts Pets in the home: Dog(s), Cat(s) Psychosocial History: Depression Lives at home with , [id number], and kids ALLERGIES: Please see below. DISCHARGE MEDICATIONS: Please see below. PHYSICAL EXAMINATION: VS: Please see below CONSTITUTIONAL: No acute distress, resting comfortably, AAO x 3 EYES: PERRLA, EOM intact HENT, MOUTH: Normocephalic, atraumatic, moist mucous membranes NECK: Decreased right neck swelling and tenderness to palpation to right neck, posterior auricular LN is gone. Large indurated area (not an abscess according to CT) occipital area of right neck/head present but appears slightly decreased in size, tender to touch, decreased erythema. no JVD, no carotid bruit CV: Sinus tachycardia , S1S2 normal, no murmurs/rubs/gallops RESPIRATORY: Clear to auscultation bilaterally, no rales/rhonchi/wheezes GI: BS positive in 4 quadrants, soft, nontender, nondistended, no rebound or guarding, no organomegaly : Deferred MUSCULOSKELETAL: Normal ROM. No cyanosis, clubbing, swelling, joint deformity, extremity edema INTEGUMENTARY: See above under neck, otherwise intact, no rashes NEUROLOGIC: Cranial Nerves II-XII are intact, no focal deficits PSYCHIATRIC: Mood and affect are normal CURRENT MEDICATIONS: Please see below LABORATORY DATA: Please see below MICROBIOLOGY: BCx x 2 sets: NG MRSA: neg IMAGING: CT neck with contrast: Cellulitis right posterior neck from suboccipital extending inferiorly to the C3-C4 level. No abscess is identified. There is associated lymphadenopathy. ASSESSMENT: 49 y/o F admitted for posterior right neck cellulitis, sepsis, shortness of breath. PLAN: Posterior right neck cellulitis, sepsis -CT neck ruled out abscess but there appears to be large indurated area (nonfluctuant), tender at base of right occipital/neck area which should be watched. -D/kat PO doxy, started IV clindamycin which helped improve cellulitis markedly -WBC slightly improved; Lactic acidosis resolved, remained afebrile -She is prescribed 7 days of 300 mg PO clindamycin QID, probiotic and is to use home narcotics for pain. -If swelling, redness, tenderness should worsened or fever present then she should be seen immediately by health care provider. SOB possibly viral URI- resolved. -Non-productive cough without fever or chills, doing well on RA -CXR showed no acute disease -Resp panel neg -CTAB currently Transaminitis- resolved. -Possibly sickness vs. medication induced Chest pressure likely 2/2 URI- resolved. -Trop neg, not ACS. DM type 2 -C/w home meds, consistent carb diet Depression -Cont home med Nortriptyline -Mood appears stable at time of admission DISPOSITION: D/c home and encouraged to f/u with PCP after holiday weekend. TIME SPENT ON DISCHARGE: 35 minutes. Vital Signs/I&Os Vital Signs Date Time Temp Pulse Resp B/P (MAP) Pulse Ox O2 Delivery O2 Flow Rate FiO2 08/02/20 10:00 98.3 115 16 140/87 (104) 97 Room Air I&O- Last 24 Hours up to 6 AM 08/02/20 06:00 Intake Total 2485 ml Output Total 700 ml Balance 1785 ml Laboratory Data Labs 24H Laboratory Tests 2 08/01/20 20:14: Bedside Glucose (Misc Panel) 203H 08/02/20 05:34: Nucleated Red Blood Cells % (auto) 0.0 08/02/20 05:37: Anion Gap 5L, Glomerular Filtration Rate > 60.0, Calcium Level 8.5, Total Bilirubin 0.2, Aspartate Amino Transf (AST/SGOT) 21, Alanine Aminotransferase (ALT/SGPT) 64, Alkaline Phosphatase 89, Total Protein 6.5, Albumin 2.6L, Albumin/Globulin Ratio 0.7L CBC/BMP Laboratory Tests 08/02/20 05:34 08/02/20 05:37 FSBS Laboratory Tests Test 08/01/20 20:14 Range/Units Bedside Glucose (Misc Panel) 203 70-105 MG/DL Microbiology Microbiology 07/31/20 Blood Culture - Preliminary, Resulted No growth after 24 hours . All specim... 07/31/20 Respiratory Virus Panel (PCR) ([facility]) - Final, Complete 07/31/20 Blood Culture - Preliminary, Resulted No growth after 24 hours . All specim... Discharge Medications Scheduled Alogliptin Benzoate ([place]) 25 Mg Tablet, 25 MG PO DAILY, (Reported) Budesonide/Formoterol (Symbicort 160-4.5 Mcg Inhaler) 6 Gm Hfa.aer.ad, 2 PUFF INH BID, (Reported) Cetirizine HCl (Cetirizine HCl) 10 Mg Tablet, 5 MG PO DAILY, (Reported) Cholecalciferol (Vitamin D3) (Vitamin D3) 1,000 Unit Tablet, 2,000 UNITS PO DAILY, (Reported) Clindamycin Hcl (Clindamycin HCl) 150 Mg Capsule, 300 MG PO QID Insulin Glargine (Lantus) 100 Unit/1 Ml Vial, 10 UNITS SC QHS, (Reported) Metformin HCl (Metformin HCl ER) 500 Mg Tab.er.24h, 1,000 MG PO BID, (Reported) Multivitamins (Thera M Plus Tablet) 1 Each Tablet, 1 TAB PO DAILY, (Reported) Nortriptyline HCl (Nortriptyline HCl) 50 Mg Capsule, 50 MG PO DAILY, (Reported) Omeprazole (Omeprazole) 40 Mg Capsule.dr, 40 MG PO DAILY, (Reported) Saccharomyces Boulardii (Probiotic) 250 Mg Capsule, 250 MG PO BIDWM Scheduled PRN Fluticasone Propionate (Flonase Allergy Relief) 9.9 Ml [place].susp, 2 SPRAYS NA DAILY PRN for NASAL CONGESTION, (Reported) Hydrocodone/Acetaminophen (Hydrocodone-Acetamin 5-325 mg) 1 Each Tablet, 1 TAB PO 5XD PRN for PAIN, (Reported) Hydroxyzine HCl (Hydroxyzine HCl) 10 Mg Tablet, 10 MG PO BID PRN for ANXIETY, (Reported) Allergies Coded Allergies: No Known Allergies (Unverified , 02/01/18) Daina Campbell MD Aug 02, 2020 16:53
[2020-08-02] MEDS ORDERED: LEVEMIR (INSULIN DETEMIR) 1 UNITS/0.01ML SC SCH (21:00)
== END 2020-08-02 11:24 | disposition home or self-care (01) | DRG 720 ==
LOC: M ED 16:24 → M ED INP 20:42 → M MSPAV 22:25
PROVIDERS: ADMIT Internal Medicine; ATTEND Internal Medicine
DX: A41.9 Sepsis, unspecified organism (principal); L02.11 Cutaneous abscess of neck; F32.9 Major depressive disorder, single episode, unspecified; J45.909 Unspecified asthma, uncomplicated; E11.9 Type 2 diabetes mellitus without complications; R74.01 Elevation of levels of liver transaminase levels; B97.89 Other viral agents as the cause of diseases classified elsewhere; R59.0 Localized enlarged lymph nodes; M54.2 Cervicalgia; J20.9 Acute bronchitis, unspecified; Z79.84 Long term (current) use of oral hypoglycemic drugs; Z79.899 Other long term (current) drug therapy

== ENCOUNTER 2020-08-18 10:34 | Emergency (ER) | payer OTHER ==
[~2020-08-18 10:34] MED LIST changes: +CETI10TA8 PO; +CLIN150C15 PO; +D31000TA2 PO; +FLON1SPR; +HYDR-4571 PO; +HYDR-643 PO; +INSULANT SC; +INSULIN SC; +METF-838 PO; +NESI25TA PO; +NORT50CA PO; +OMEP-221 PO; +PROB250C PO; +RISATAB3 PO; +SYMB16INH INH; +TRAM50TA2 PO; +VITMTA PO
[2020-08-18 11:01] VITALS: BP 140/102
[2020-08-18] MEDS ORDERED: KETOROLAC 30 MG/ML 1ML VIAL IV ONE (11:15)
[2020-08-18] MEDS ORDERED: methylPREDNISolone 125MG 2ML VIAL IV ONE (11:15)
--- NOTE | 2020-08-18 11:29 | REP ---
INDICATION: DYSPNEA/COUGH COMPARISON: 07/31/2020 TECHNIQUE: Portable AP view of the chest FINDINGS: The mediastinum and cardiac silhouette are stable and within normal limits for portable technique. The lung yousif are clear without acute consolidation, effusion, or pneumothorax. Skeletal structures are intact. IMPRESSION: No acute cardiopulmonary process appreciated. <Electronically signed by Horacio Clay > 08/18/20 [id number]
[2020-08-18] MEDS: ALBUTEROL 90 MCG/ACT 8GM HFA INHALER INH SCH ×2 (11:35→12:34)
[2020-08-18 12:15] LABS: BASO # 0.1 10^3/uL (0.0-0.2); BASO % 0.3 % (0.0-1.0); EOS # 0.2 10^3/uL (0.0-0.5); HEMATOCRIT 41.9 % (36.0-47.0); HEMOGLOBIN 13.2 g/dl (12.0-15.5); LYMPH # 3.5 10^3/uL (1.5-5.0); LYMPH % 24.1 % (24.0-44.0); MEAN CORPUSCULAR HEMOGLOBIN 29.3 pg (27.0-33.0); MEAN CORPUSCULAR HGB CONC 31.5 g/dl (32.0-36.5); MEAN CORPUSCULAR VOLUME 92.9 fl (80.0-96.0); MONO # 0.7 10^3/uL (0.0-0.8); MONO % 4.8 % (2.0-8.0); NEUTROPHILS # 10.2 10^3/uL (1.5-8.5); NEUTROPHILS % 69.3 % (36.0-66.0); PLATELET COUNT, AUTOMATED 335 10^3/uL (150-450); RED BLOOD COUNT 4.51 10^6/uL (4.00-5.40); WHITE BLOOD COUNT 14.7 10^3/uL (4.0-10.0)
[2020-08-18 12:24] LABS: INR 0.96
[2020-08-18 12:27] LABS: D-DIMER QUANT 621.68 ng/ml (<500)
[2020-08-18 12:40] LABS: CK-MB VALUE MASS < 1.0 NG/ML (<3.6); CPK CREATINE PHOSPHOKINASE 74 U/L (26-192); MB/CK RELATIVE INDEX 1.35 (< OR =4); NT-PRO BNP 21 PG/ML (<125); TROPONIN I < 0.02 NG/ML (< 0.10)
[2020-08-18] MEDS ORDERED: ACETAMINOPHEN 325 MG TAB PO ONE (13:10)
[2020-08-18] MEDS ORDERED: ONDANSETRON 4MG/2ML VIAL IV ONE (13:10)
[2020-08-18] MEDS ORDERED: ISOVUE-370 76% 100ML VIAL As Ordered ONE (13:20)
--- NOTE | 2020-08-18 13:44 | REP ---
INDICATION: sob COMPARISON: None. TECHNIQUE: Axial contrast enhanced images from the thoracic inlet to the upper abdomen using pulmonary embolus technique with multiplanar re-formations. 75 ml Isovue 370 intravenous contrast material administered without complication. This CT examination was performed using the following dose reduction techniques: Automated exposure control, adjustment of mA and/or kv according to the patient's size, and use of iterative reconstruction technique. FINDINGS: Examination is suboptimal and essentially nondiagnostic for pulmonary embolus. Main pulmonary arteries are normal in appearance and size. Thoracic aorta is normal without aneurysm or obvious dissection. No cardiomegaly or pericardial effusion. Lung yousif suggest mild/moderate emphysematous changes without consolidation, effusion, or pneumothorax. Tracheobronchial tree is patent. No suspicious nodule or mass lesion identified. No obvious adenopathy. Musculoskeletal structures without acute osseous abnormality. Limited upper abdomen demonstrates normal bilateral adrenal glands, hepatomegaly, and diffuse hepatosteatosis. IMPRESSION: 1. Nondiagnostic for pulmonary embolus. 2. No acute mediastinal or pleuroparenchymal process appreciated. 3. As above. <Electronically signed by Horacio Clay > 08/18/20 [id number]
[2020-08-18] MEDS ORDERED: PRED20TA PO (14:12)
[2020-08-18] MEDS ORDERED: AMOX875T2 PO (14:12)
== END 2020-08-18 14:41 | disposition home or self-care (01) ==
LOC: M ED 10:34
DX: J44.1 Chronic obstructive pulmonary disease with (acute) exacerbation (principal); J20.9 Acute bronchitis, unspecified; E11.9 Type 2 diabetes mellitus without complications; J45.909 Unspecified asthma, uncomplicated; F33.9 Major depressive disorder, recurrent, unspecified; F41.9 Anxiety disorder, unspecified; K21.9 Gastro-esophageal reflux disease without esophagitis; R51.9 Headache, unspecified; Z78.0 Asymptomatic menopausal state; Z79.899 Other long term (current) drug therapy; Z79.4 Long term (current) use of insulin
CPT/HCPCS: 71045; 71275; 80047; 82550; 82553; 83880; 85025; 85379; 85610; 87798; 94640; 96374; 96375; 99284; J1885; J2405; J2930; Q9967

== ENCOUNTER 2021-10-15 16:40 | Emergency (ER) | payer OTHER ==
[~2021-10-15] VITALS: Ht 160 cm; Wt 83.4 kg
[~2021-10-15 16:40] MED LIST changes: +AMOX875T2 PO; -CEFD1CAP8; +CEFD300C41; +CETI-25 PO; -CETI10TA8 PO; -CLIN150C15 PO; +CLIN150C17 PO; -CYMB60CA3 PO; +CYMB60CA4 PO; -D31000TA2 PO; -OMEP-221 PO; +OMEP40CA5 PO; +VITA100093 PO
[2021-10-15 16:41] VITALS: BP 138/83
[2021-10-15] MEDS ORDERED: KETOROLAC 60MG 2ML VIAL IM ONE (18:10)
== END 2021-10-15 19:34 | disposition home or self-care (01) ==
LOC: M ED 16:40
DX: M25.571 Pain in right ankle and joints of right foot (principal); E11.9 Type 2 diabetes mellitus without complications; J45.909 Unspecified asthma, uncomplicated; E78.5 Hyperlipidemia, unspecified; K21.9 Gastro-esophageal reflux disease without esophagitis; Z79.899 Other long term (current) drug therapy; Z79.84 Long term (current) use of oral hypoglycemic drugs; Z79.4 Long term (current) use of insulin
CPT/HCPCS: 73630; 96372; 99284; J1885

== ENCOUNTER 2021-11-02 18:49 | Emergency (ER) | payer OTHER ==
[~2021-11-02] VITALS: Ht 160 cm; Wt 79.6 kg
[2021-11-02 21:57] LABS: HEMATOCRIT 39.6 % (36.0-47.0); HEMOGLOBIN 12.9 g/dl (12.0-15.5); MEAN CORPUSCULAR HEMOGLOBIN 32.2 pg (27.0-33.0); MEAN CORPUSCULAR HGB CONC 32.6 g/dl (32.0-36.5); MEAN CORPUSCULAR VOLUME 98.8 fl (80.0-96.0); PLATELET COUNT, AUTOMATED 323 10^3/uL (150-450); RED BLOOD COUNT 4.01 10^6/uL (4.00-5.40)
[2021-11-02 22:24] LABS: BLOOD UREA NITROGEN 19 MG/DL (7-18); CALCIUM LEVEL 9.3 MG/DL (8.5-10.1); CARBON DIOXIDE LEVEL 29 MEQ/L (21-32); CHLORIDE LEVEL 108 MEQ/L (98-107); CREATININE FOR GFR 0.62 MG/DL (0.55-1.30); GLOMERULAR FILTRATION RATE > 60.0 (>51); GLUCOSE, FASTING 99 MG/DL (70-100); POTASSIUM SERUM 3.7 MEQ/L (3.5-5.1); SODIUM LEVEL 144 MEQ/L (136-145)
[2021-11-02 22:26] LABS: CK-MB VALUE MASS 1.7 NG/ML (<3.6); CPK CREATINE PHOSPHOKINASE 203 U/L (26-192); MB/CK RELATIVE INDEX 0.84 (< OR =4)
[2021-11-02] MEDS ORDERED: dexameTHASONE 20MG/5ML VIAL (J1100 PER 1MG) IV ONE (22:55)
[2021-11-02] MEDS ORDERED: IPRATROPIUM 0.5MG/ALBUTEROL 2.5MG INH SOL UD 3ML (DUONEB) NEB ONE (22:55)
[2021-11-02] MEDS ORDERED: NS 1,000 ML IV ONE (22:55)
[2021-11-03 01:05] VITALS: BP 169/88
== END 2021-11-03 01:10 | disposition home or self-care (01) ==
LOC: M ED 18:49
DX: R06.02 Shortness of breath (principal); R05.9 Cough, unspecified; B97.81 Human metapneumovirus as the cause of diseases classified elsewhere; E11.9 Type 2 diabetes mellitus without complications; J45.909 Unspecified asthma, uncomplicated; Z79.899 Other long term (current) drug therapy; Z79.84 Long term (current) use of oral hypoglycemic drugs; Z79.4 Long term (current) use of insulin
CPT/HCPCS: 71046; 80048; 82550; 82553; 85027; 87486; 87581; 87633; 87798; 93005; 96361; 96374; 99284; J1100

== ENCOUNTER 2021-11-08 19:14 | Emergency (ER) | payer OTHER ==
[~2021-11-08] VITALS: Ht 160 cm; Wt 77.3 kg
[2021-11-08 19:15] VITALS: BP 150/89
[2021-11-08] MEDS ORDERED: KETOROLAC 60MG 2ML VIAL IM ONE (21:10)
== END 2021-11-08 21:47 | disposition home or self-care (01) ==
LOC: M ED 19:14
DX: M25.571 Pain in right ankle and joints of right foot (principal); E11.9 Type 2 diabetes mellitus without complications; J45.909 Unspecified asthma, uncomplicated; K21.9 Gastro-esophageal reflux disease without esophagitis; Z78.0 Asymptomatic menopausal state; Z79.899 Other long term (current) drug therapy; Z79.84 Long term (current) use of oral hypoglycemic drugs; Z79.4 Long term (current) use of insulin
CPT/HCPCS: 73590; 73610; 96372; 99282; J1885

== ENCOUNTER → 2021-12-08 | Outpatient (CLI) | payer OTHER | LOC: M PLAIMG 12:28 | PROVIDERS: ATTEND Orthopaedic Surgery | DX: M25.571 Pain in right ankle and joints of right foot (principal); Q74.2 Other congenital malformations of lower limb(s), including pelvic girdle ==

== ENCOUNTER → 2022-04-05 | Outpatient (CLI) | payer OTHER | LOC: M SOG 07:56 | PROVIDERS: ATTEND Orthopaedic Surgery Adult Reconstructive Orthopaedic Surgery | DX: M17.11 Unilateral primary osteoarthritis, right knee (principal); M25.551 Pain in right hip; M25.552 Pain in left hip; M79.604 Pain in right leg; M51.36 Other intervertebral disc degeneration, lumbar region; M51.37 Other intervertebral disc degeneration, lumbosacral region ==

== ENCOUNTER → 2022-04-20 | Outpatient (CLI) | payer OTHER ==
[~2022-04-20] MED LIST changes: +BUPIVACAINE HCL 0.5% 10ML VIAL As Ordered ONE; +COLA100C5 PO; +FOLI0.8T3 PO; +IRON65TA PO; +PERCOCET PO; +ZOLO100T PO; +methylPREDNISolone 80MG/ML SUSP 1ML VIAL (J1040) As Ordered ONE
== END ==
LOC: M IRPRO 13:23
PROVIDERS: ATTEND Orthopaedic Surgery Adult Reconstructive Orthopaedic Surgery
DX: M70.71 Other bursitis of hip, right hip (principal); M70.72 Other bursitis of hip, left hip
CPT/HCPCS: 20610; J1040

== ENCOUNTER → 2022-05-12 | Outpatient (CLI) | payer OTHER ==
[~2022-05-12] MED LIST changes: +**SFHN** BUPIVACAINE HCL 0.5% 10ML VIAL ONE; +**SFHN** LIDOCAINE 1% MDV 20ML VIAL ONE; -BUPIVACAINE HCL 0.5% 10ML VIAL As Ordered ONE; +ISOVUE-300 61% 50ML VIAL ONE; -methylPREDNISolone 80MG/ML SUSP 1ML VIAL (J1040) As Ordered ONE; +methylPREDNISolone 80MG/ML SUSP 1ML VIAL (J1040) ONE
== END ==
LOC: M PLAIMG 15:35
PROVIDERS: ATTEND Orthopaedic Surgery Adult Reconstructive Orthopaedic Surgery
DX: M25.851 Other specified joint disorders, right hip (principal)
CPT/HCPCS: 20610; 76000; J1040; Q9967

== ENCOUNTER 2022-05-18 14:04 | Emergency (ER) | payer OTHER ==
[~2022-05-18] VITALS: Ht 160 cm; Wt 80.8 kg
[~2022-05-18 14:04] MED LIST changes: -**SFHN** BUPIVACAINE HCL 0.5% 10ML VIAL ONE; -**SFHN** LIDOCAINE 1% MDV 20ML VIAL ONE; -ISOVUE-300 61% 50ML VIAL ONE; -methylPREDNISolone 80MG/ML SUSP 1ML VIAL (J1040) ONE
[2022-05-18 14:05] VITALS: BP 143/87
[2022-05-19] MEDS ORDERED: PERC5TAB12 PO (20:50)
[2022-05-19] MEDS ORDERED: ASPE4PAD TOP (20:50)
== END 2022-05-18 16:07 | disposition left against medical advice (07) ==
LOC: M ED 14:04
DX: Z53.21 Procedure and treatment not carried out due to patient leaving prior to being seen by health care provider (principal)

== ENCOUNTER 2022-05-19 15:31 | Emergency (ER) | payer OTHER ==
[~2022-05-19] VITALS: Ht 160 cm; Wt 81.3 kg
[2022-05-19] MEDS ORDERED: PERCOCET 5MG/325MG TAB PO ONE (17:35)
[2022-05-19] MEDS ORDERED: LIDOCAINE 5% (LIDODERM) PATCH TD ONE (17:35)
[2022-05-19 18:11] LABS: BASO % 0.5 % (0.0-1.0); HEMOGLOBIN 13.5 g/dl (12.0-15.5); LYMPH # 3.6 10^3/uL (1.5-5.0); LYMPH % 32.2 % (24.0-44.0); MEAN CORPUSCULAR HEMOGLOBIN 32.4 pg (27.0-33.0); MEAN CORPUSCULAR HGB CONC 32.1 g/dl (32.0-36.5); MEAN CORPUSCULAR VOLUME 100.7 fl (80.0-96.0); MONO # 0.8 10^3/uL (0.0-0.8); MONO % 7.4 % (2.0-8.0); NEUTROPHILS # 6.1 10^3/uL (1.5-8.5); NEUTROPHILS % 55.6 % (36.0-66.0); PLATELET COUNT, AUTOMATED 311 10^3/uL (150-450); RED BLOOD COUNT 4.17 10^6/uL (4.00-5.40)
[2022-05-19 18:12] LABS: BASO # 0.1 10^3/uL (0.0-0.2); EOS # 0.4 10^3/uL (0.0-0.5)
[2022-05-19 18:42] LABS: CK-MB VALUE MASS < 1.0 NG/ML (<3.6)
[2022-05-19 18:43] LABS: CPK CREATINE PHOSPHOKINASE 60 U/L (34-145); MB/CK RELATIVE INDEX 1.66 (< OR =4)
[2022-05-19] MEDS ORDERED: ISOVUE-370 76% 100ML VIAL As Ordered ONE (18:46)
[2022-05-19] MEDS ORDERED: ASPE4PAD TOP (20:50)
[2022-05-19] MEDS ORDERED: PERC5TAB12 PO (20:50)
[2022-05-19 21:06] VITALS: BP 136/80
== END 2022-05-19 21:07 | disposition home or self-care (01) ==
LOC: M ED 15:31
DX: S22.20XA Unspecified fracture of sternum, initial encounter for closed fracture (principal); E11.9 Type 2 diabetes mellitus without complications; J45.909 Unspecified asthma, uncomplicated; Z79.84 Long term (current) use of oral hypoglycemic drugs; Z79.899 Other long term (current) drug therapy
CPT/HCPCS: 71260; 80047; 82550; 82553; 84484; 85025; 93005; 94010; 99284; Q9967

== ENCOUNTER → 2022-06-30 | Outpatient (CLI) | payer OTHER ==
[~2022-06-30] MED LIST changes: +ASPE4PAD TOP; +ISOVUE-300 61% 50ML VIAL ONE; +LIDOCAINE 1% MDV 20ML VIAL ONE; +PERC5TAB12 PO; +PROHANCE 279.3MG/ML 5ML VIAL ONE
== END ==
LOC: M PLAIMG 12:20
PROVIDERS: ATTEND Orthopaedic Surgery Adult Reconstructive Orthopaedic Surgery
DX: M25.851 Other specified joint disorders, right hip (principal)
CPT/HCPCS: 27093; 73723; 77002; A9576; Q9967

== ENCOUNTER → 2022-07-14 | Outpatient (CLI) | payer OTHER ==
[~2022-07-14] MED LIST changes: -ISOVUE-300 61% 50ML VIAL ONE; -LIDOCAINE 1% MDV 20ML VIAL ONE; -PROHANCE 279.3MG/ML 5ML VIAL ONE
== END ==
LOC: M PLAIMG 10:52
PROVIDERS: ATTEND Orthopaedic Surgery Adult Reconstructive Orthopaedic Surgery
DX: M54.16 Radiculopathy, lumbar region (principal); M51.36 Other intervertebral disc degeneration, lumbar region; M51.26 Other intervertebral disc displacement, lumbar region

== ENCOUNTER → 2022-08-10 | Outpatient (CLI) | payer OTHER | LOC: M SLEEP 20:00 | PROVIDERS: ATTEND Nurse Practitioner Family | DX: R06.83 Snoring (principal); R06.3 Periodic breathing ==

== ENCOUNTER → 2022-09-27 | Outpatient (CLI) | payer OTHER | LOC: M SOG 11:45 | PROVIDERS: ATTEND Orthopaedic Surgery | DX: M47.27 Other spondylosis with radiculopathy, lumbosacral region (principal) ==

== ENCOUNTER → 2022-10-20 | Outpatient (CLI) | payer OTHER | LOC: M SOG 15:34 | PROVIDERS: ATTEND Orthopaedic Surgery | DX: M47.22 Other spondylosis with radiculopathy, cervical region (principal) ==

== ENCOUNTER → 2022-11-01 | Outpatient (REF) | payer OTHER ==
[2022-11-01 16:33] LABS: BASO % 0.3 % (0.0-1.0); EOS # 0.3 10^3/uL (0.0-0.5); EOS % 2.9 % (0.0-3.0); HEMATOCRIT 41.8 % (36.0-47.0); HEMOGLOBIN 13.4 g/dl (12.0-15.5); LYMPH # 2.7 10^3/uL (1.5-5.0); LYMPH % 30.1 % (24.0-44.0); MEAN CORPUSCULAR HEMOGLOBIN 31.9 pg (27.0-33.0); MEAN CORPUSCULAR HGB CONC 32.1 g/dl (32.0-36.5); MEAN CORPUSCULAR VOLUME 99.5 fl (80.0-96.0); MONO # 0.5 10^3/uL (0.0-0.8); NEUTROPHILS # 5.4 10^3/uL (1.5-8.5); NEUTROPHILS % 60.6 % (36.0-66.0); PLATELET COUNT, AUTOMATED 320 10^3/uL (150-450); WHITE BLOOD COUNT 8.9 10^3/uL (4.0-10.0)
[2022-11-01 16:55] LABS: URIC ACID 3.5 MG/DL (3.1-7.8)
[2022-11-01 17:02] LABS: ERYTHROCYTE SEDIMENTATION RATE 43 mm/hr (0-30)
[2022-11-01 17:15] LABS: ALBUMIN 3.2 G/DL (3.2-5.2); ALKALINE PHOSPHATASE 96 U/L (46-116); ALT/SGPT 20 U/L (7.0-40); AST/SGOT 16 U/L (<34); BILIRUBIN,TOTAL 0.2 MG/DL (0.3-1.2); BLOOD UREA NITROGEN 14 MG/DL (9-23); CALCIUM LEVEL 8.6 MG/DL (8.5-10.1); CARBON DIOXIDE LEVEL 31 MMOL/L (20-31); CHLORIDE LEVEL 105 MMOL/L (98-107); CREATININE FOR GFR 0.66 MG/DL (0.55-1.30); GLOMERULAR FILTRATION RATE > 60.0 (>51); GLUCOSE, FASTING 64 MG/DL (60-100); POTASSIUM SERUM 4.2 MMOL/L (3.5-5.1); SODIUM LEVEL 142 MMOL/L (136-145); TOTAL PROTEIN 6.4 G/DL (5.7-8.2)
== END ==
LOC: M SFHCRHEU 13:00
PROVIDERS: ATTEND Internal Medicine Rheumatology
DX: M25.50 Pain in unspecified joint (principal)
CPT/HCPCS: 36415; 80053; 84550; 85025; 85652; 86140; G0463

== ENCOUNTER → 2022-11-19 | Outpatient (CLI) | payer OTHER ==
[~2022-11-19] MED LIST changes: +ATOR80TA59 PO; +BUPR1TAB56 PO; +CETI10CH PO; +D 1010002 PO; +DULO60CA35 PO; +LYRI150C PO; +MELO15TA28 PO; +PANT40TA29 PO; +TIZA4CAP6 PO; +WELL200T PO
== END ==
LOC: M PLARAD 08:21
PROVIDERS: ATTEND Orthopaedic Surgery
DX: M67.814 Other specified disorders of tendon, left shoulder (principal); R22.32 Localized swelling, mass and lump, left upper limb

== ENCOUNTER → 2022-11-23 | Outpatient (CLI) | payer OTHER ==
[~2022-11-23] MED LIST changes: +MED REC COMMENT
== END ==
LOC: M RAD 09:56
PROVIDERS: ATTEND Internal Medicine Rheumatology
DX: M25.50 Pain in unspecified joint (principal); M19.071 Primary osteoarthritis, right ankle and foot; M19.072 Primary osteoarthritis, left ankle and foot; Z98.890 Other specified postprocedural states; M77.32 Calcaneal spur, left foot; M77.31 Calcaneal spur, right foot; M19.041 Primary osteoarthritis, right hand; M19.042 Primary osteoarthritis, left hand; M19.031 Primary osteoarthritis, right wrist

== ENCOUNTER 2022-11-25 06:09 | Observation (INO) | payer OTHER ==
[~2022-11-25] VITALS: Ht 160 cm; Wt 85.5 kg
[2022-11-25] VITALS (8 sets, daily range): BP systolic 114–149; BP diastolic 66–100; TEMP 97.5–97.9; O2SAT 92–99
[~2022-11-25 06:09] MED LIST changes: -MED REC COMMENT; +TRANEXAMIC ACID 100 MG/ML 10ML VIAL IV ONE; +ceFAZolin SOD 2 GM in IV 1 EA IV ONE; +oxyCODONE 5MG TAB PO ONE
[2022-11-25] MEDS ORDERED: LR 1,000 ML IV SCH ×2 (06:50→11:30)
[2022-11-25] MEDS ORDERED: KETAMINE HCL 200MG/20ML VIAL As Ordered ONE (07:14)
[2022-11-25] MEDS ORDERED: propofoL 500 MG/50 ML VIAL As Ordered ONE ×2 (07:14→08:57)
[2022-11-25] MEDS ORDERED: fentaNYL 250 MCG/5 ML INJECTION As Ordered ONE (07:14)
[2022-11-25] MEDS ORDERED: MIDAZOLAM 5MG/ML 1ML VIAL As Ordered ONE (07:15)
[2022-11-25] MEDS ORDERED: LIDOCAINE 2% 100MG/5ML SDV (FOR ANES.) As Ordered ONE (07:20)
[2022-11-25] MEDS ORDERED: propofoL 200 MG/20 ML VIAL As Ordered ONE (07:20)
[2022-11-25] MEDS ORDERED: PHENYLEPHRINE 10MG/ML 1ML VIAL As Ordered ONE (07:21)
[2022-11-25] MEDS ORDERED: ONDANSETRON 4MG 2ML VIAL As Ordered ONE (07:29)
[2022-11-25] MEDS ORDERED: ACETAMINOPHEN 1000MG 100ML IV BAG As Ordered ONE (07:30)
[2022-11-25] MEDS ORDERED: KETOROLAC 60MG 2ML VIAL As Ordered ONE (07:30)
[2022-11-25] MEDS ORDERED: TRANEXAMIC ACID 100 MG/ML 10ML VIAL As Ordered ONE ×2 (07:36→07:59)
[2022-11-25] MEDS ORDERED: THROMBIN 20,000 UNITS KIT As Ordered ONE (07:36)
[2022-11-25] MEDS ORDERED: ISOVUE-M 300 61% 15ML VIAL As Ordered ONE (07:37)
[2022-11-25] MEDS ORDERED: HYDROmorphone HCL 2MG/ML 1ML VIAL As Ordered ONE (08:42)
[2022-11-25] MEDS ORDERED: VANCOMYCIN 1000MG/20ML VIAL As Ordered ONE (10:54)
[2022-11-25] MEDS ORDERED: SENNA 8.6 MG TAB (SENOKOT) PO PRN (11:30)
[2022-11-25] MEDS ORDERED: ACETAMINOPHEN TAB 650MG DOSE (2X325MG) PO PRN (11:30)
[2022-11-25] MEDS ORDERED: ONDANSETRON 4MG 2ML VIAL IV PRN (11:30)
[2022-11-25] MEDS ORDERED: fentaNYL 100 MCG/2 ML INJECTION IV PRN (11:30)
[2022-11-25] MEDS ORDERED: oxyCODONE 5MG TAB PO PRN (11:30)
[2022-11-25] MEDS: HYDROMORPHONE HCL 0.5 MG/ 0.5 ML SYRINGE IV PRN ×2 (12:17→12:26)
[2022-11-25] MEDS ORDERED: HYDR-3713 PO (14:42)
[2022-11-25] MEDS ORDERED: MED REC COMMENT (14:44)
[2022-11-25] MEDS ORDERED: HOME MED LIST COMPLETE! XX SCH (14:50)
[2022-11-25] MEDS: MORPHINE 4 MG/ML 1ML VIAL IV PRN ×2 (14:55→20:21)
[2022-11-25] MEDS: ceFAZolin SOD 2 GM in IV 1 EA IV SCH (16:11)
[2022-11-25] MEDS: PANTOPRAZOLE 40MG TAB (PROTONIX) PO SCH (16:12)
[2022-11-25] MEDS: ATORVASTATIN 20 MG TAB PO SCH (16:12)
[2022-11-25] MEDS: CETIRIZINE (ZyrTEC) 10 MG TAB PO SCH (16:12)
[2022-11-25] MEDS ORDERED: IBUPROFEN 600MG TAB PO PRN (17:00)
[2022-11-25] MEDS: buPROPion (WELLBUTRIN SR) 100 MG SR TAB PO SCH (17:16)
[2022-11-25] MEDS: oxyCODONE 5MG TAB PO PRN ×2 (17:21→22:05)
[2022-11-25] MEDS: DOCUSATE SODIUM 100MG CAPSULE PO SCH (20:20)
[2022-11-25] MEDS: PREGABALIN 75 MG CAP(LYRICA) PO SCH (20:20)
[2022-11-26] MEDS: ceFAZolin SOD 2 GM in IV 1 EA IV SCH ×2 (01:14→10:12)
[2022-11-26] MEDS: MORPHINE 4 MG/ML 1ML VIAL IV PRN ×5 (01:15→20:19)
[2022-11-26 01:24] VITALS: BP 133/83; TEMP 97.9; O2SAT 94
[2022-11-26] MEDS: oxyCODONE 5MG TAB PO PRN ×5 (04:55→22:27)
[2022-11-26 05:21] VITALS: BP 130/80; TEMP 98.1; O2SAT 96
[2022-11-26 07:20] LABS: HEMATOCRIT 35.3 % (36.0-47.0); HEMOGLOBIN 11.3 g/dl (12.0-15.5); MEAN CORPUSCULAR HEMOGLOBIN 31.9 pg (27.0-33.0); MEAN CORPUSCULAR VOLUME 99.7 fl (80.0-96.0); PLATELET COUNT, AUTOMATED 268 10^3/uL (150-450); RED BLOOD COUNT 3.54 10^6/uL (4.00-5.40); WHITE BLOOD COUNT 13.5 10^3/uL (4.0-10.0)
[2022-11-26 07:44] LABS: BLOOD UREA NITROGEN 18 MG/DL (9-23); CALCIUM LEVEL 7.9 MG/DL (8.5-10.1); CARBON DIOXIDE LEVEL 32 MMOL/L (20-31); CHLORIDE LEVEL 103 MMOL/L (98-107); GLOMERULAR FILTRATION RATE > 60.0 (>51); GLUCOSE, FASTING 95 MG/DL (60-100); POTASSIUM SERUM 3.9 MMOL/L (3.5-5.1); SODIUM LEVEL 139 MMOL/L (136-145)
[2022-11-26] MEDS: PREGABALIN 75 MG CAP(LYRICA) PO SCH ×2 (10:10→20:18)
[2022-11-26] MEDS: DOCUSATE SODIUM 100MG CAPSULE PO SCH ×2 (10:10→20:18)
[2022-11-26] MEDS: PANTOPRAZOLE 40MG TAB (PROTONIX) PO SCH (10:11)
[2022-11-26] MEDS: CETIRIZINE (ZyrTEC) 10 MG TAB PO SCH (10:11)
[2022-11-26] MEDS: ATORVASTATIN 20 MG TAB PO SCH (10:11)
[2022-11-26] MEDS: buPROPion (WELLBUTRIN SR) 100 MG SR TAB PO SCH (10:12)
[2022-11-26 14:00] VITALS: BP 112/66; TEMP 98.2; O2SAT 96
[2022-11-26 21:21] VITALS: BP 151/60; TEMP 97.3; O2SAT 96
[2022-11-27] MEDS: MORPHINE 4 MG/ML 1ML VIAL IV PRN ×2 (00:28→05:50)
[2022-11-27] MEDS: oxyCODONE 5MG TAB PO PRN ×3 (02:32→10:07)
[2022-11-27] MEDS: ONDANSETRON 4MG 2ML VIAL IV PRN ×2 (05:56→10:07)
[2022-11-27 06:00] VITALS: BP 113/65; TEMP 98.1; O2SAT 95
[2022-11-27 07:09] LABS: HEMATOCRIT 34.5 % (36.0-47.0); HEMOGLOBIN 11.1 g/dl (12.0-15.5); MEAN CORPUSCULAR HEMOGLOBIN 31.9 pg (27.0-33.0); MEAN CORPUSCULAR HGB CONC 32.2 g/dl (32.0-36.5); MEAN CORPUSCULAR VOLUME 99.1 fl (80.0-96.0); PLATELET COUNT, AUTOMATED 277 10^3/uL (150-450); RED BLOOD COUNT 3.48 10^6/uL (4.00-5.40); WHITE BLOOD COUNT 15.4 10^3/uL (4.0-10.0)
[2022-11-27] MEDS ORDERED: MELO15TA28 PO (07:33)
[2022-11-27] MEDS ORDERED: HYDR-4517 PO (07:33)
[2022-11-27 07:37] LABS: BLOOD UREA NITROGEN 11 MG/DL (9-23); CALCIUM LEVEL 7.6 MG/DL (8.5-10.1); CARBON DIOXIDE LEVEL 32 MMOL/L (20-31); CHLORIDE LEVEL 99 MMOL/L (98-107); GLOMERULAR FILTRATION RATE > 60.0 (>51); GLUCOSE, FASTING 113 MG/DL (60-100); POTASSIUM SERUM 3.8 MMOL/L (3.5-5.1); SODIUM LEVEL 138 MMOL/L (136-145)
[2022-11-27] MEDS: CETIRIZINE (ZyrTEC) 10 MG TAB PO SCH (09:59)
[2022-11-27] MEDS: buPROPion (WELLBUTRIN SR) 100 MG SR TAB PO SCH (09:59)
[2022-11-27] MEDS: DOCUSATE SODIUM 100MG CAPSULE PO SCH (10:00)
[2022-11-27] MEDS: ATORVASTATIN 20 MG TAB PO SCH (10:00)
[2022-11-27] MEDS: PANTOPRAZOLE 40MG TAB (PROTONIX) PO SCH (10:00)
[2022-11-27] MEDS: PREGABALIN 75 MG CAP(LYRICA) PO SCH (10:00)
== END 2022-11-27 11:00 | disposition home or self-care (01) ==
LOC: M SDC 06:09 → M MS5PR 13:25 → M SDC 11-26 06:09 → M MS5PR 11-26 06:10
PROVIDERS: ADMIT Orthopaedic Surgery; ATTEND Orthopaedic Surgery
DX: M51.36 Other intervertebral disc degeneration, lumbar region (principal); M48.061 Spinal stenosis, lumbar region without neurogenic claudication; M54.16 Radiculopathy, lumbar region; E11.9 Type 2 diabetes mellitus without complications; K21.9 Gastro-esophageal reflux disease without esophagitis; M19.90 Unspecified osteoarthritis, unspecified site; M79.7 Fibromyalgia; F41.9 Anxiety disorder, unspecified; F32.A Depression, unspecified; F43.10 Post-traumatic stress disorder, unspecified; J45.909 Unspecified asthma, uncomplicated; Z79.899 Other long term (current) drug therapy; Z79.891 Long term (current) use of opiate analgesic; Z79.84 Long term (current) use of oral hypoglycemic drugs
CPT/HCPCS: 20930; 22630; 22853; 36415; 63052; 72100; 76000; 80048; 85027; 88304; 96374; 96375; 96376; 97161; 97165; C1713; C1762; C9290; G0378; J0131; J0690; J1100; J1170; J1885; J2250; J2370; J2405; J3010; Q9967

== ENCOUNTER → 2022-12-08 | Outpatient (CLI) | payer OTHER ==
[~2022-12-08] MED LIST changes: +HYDR-4517 PO; +MED REC COMMENT; -TRANEXAMIC ACID 100 MG/ML 10ML VIAL IV ONE; -ceFAZolin SOD 2 GM in IV 1 EA IV ONE; -oxyCODONE 5MG TAB PO ONE
== END ==
LOC: M SOG 08:08
PROVIDERS: ATTEND Orthopaedic Surgery
DX: Z47.89 Encounter for other orthopedic aftercare (principal); M85.88 Other specified disorders of bone density and structure, other site; M47.817 Spondylosis without myelopathy or radiculopathy, lumbosacral region

== ENCOUNTER → 2023-01-19 | Outpatient (CLI) | payer OTHER | LOC: M SOG 15:44 | PROVIDERS: ATTEND Orthopaedic Surgery | DX: Z47.89 Encounter for other orthopedic aftercare (principal); M51.16 Intervertebral disc disorders with radiculopathy, lumbar region ==

== ENCOUNTER → 2023-02-08 | Outpatient (REF) | LOC: M PLAIMG 08:49 | PROVIDERS: ATTEND Internal Medicine | DX: M51.26 Other intervertebral disc displacement, lumbar region (principal); M25.861 Other specified joint disorders, right knee; M25.761 Osteophyte, right knee ==

== ENCOUNTER → 2023-02-23 | Outpatient (CLI) | payer OTHER | LOC: M PLAIMG 11:10 | PROVIDERS: ATTEND Nurse Practitioner Family | DX: M54.12 Radiculopathy, cervical region (principal) ==

== ENCOUNTER → 2023-03-04 | Outpatient (CLI) | payer OTHER | LOC: M SOG 14:26 | PROVIDERS: ATTEND Orthopaedic Surgery | DX: Z47.89 Encounter for other orthopedic aftercare (principal) ==

== ENCOUNTER 2023-08-06 19:31 | Emergency (ER) | payer OTHER ==
[~2023-08-06] VITALS: Ht 160 cm; Wt 93.1 kg
[~2023-08-06 19:31] MED LIST changes: +CEFD1CAP9; -CEFD300C41
[2023-08-06] MEDS ORDERED: CELE1CAP4 PO (19:54)
[2023-08-07] MEDS: methocarbamoL 750 MG TAB PO ONE (00:27)
[2023-08-07] MEDS: KETOROLAC 60MG 2ML VIAL IM ONE (00:27)
[2023-08-07] MEDS ORDERED: METH-1165 PO (01:43)
[2023-08-07 01:55] VITALS: BP 118/66; TEMP 98; O2SAT 99
== END 2023-08-07 01:57 | disposition home or self-care (01) ==
LOC: M ED 19:31
DX: M25.511 Pain in right shoulder (principal); E11.9 Type 2 diabetes mellitus without complications; J45.909 Unspecified asthma, uncomplicated; K21.9 Gastro-esophageal reflux disease without esophagitis; F41.9 Anxiety disorder, unspecified; F32.A Depression, unspecified; M51.36 Other intervertebral disc degeneration, lumbar region; F10.10 Alcohol abuse, uncomplicated; Z79.02 Long term (current) use of antithrombotics/antiplatelets; Z79.4 Long term (current) use of insulin; Z79.52 Long term (current) use of systemic steroids; Z79.899 Other long term (current) drug therapy
CPT/HCPCS: 73030; 96372; 99283; J1885

== ENCOUNTER 2023-09-07 17:06 | Emergency (ER) | payer OTHER ==
[~2023-09-07] VITALS: Ht 160 cm; Wt 92.0 kg
[~2023-09-07 17:06] MED LIST changes: +CELE1CAP4 PO; +METH-1165 PO
[2023-09-07 17:07] VITALS: TEMP 98.1
[2023-09-07] MEDS ORDERED: HYDR-3713 (17:31)
[2023-09-07] MEDS: ACETAMINOPHEN 500 MG TAB PO ONE (17:37)
[2023-09-07 17:48] LABS: BASO % 0.2 % (0.0-1.0); EOS # 0.3 10^3/uL (0.0-0.5); EOS % 3.2 % (0.0-3.0); HEMOGLOBIN 12.6 g/dl (12.0-15.5); LYMPH # 2.9 10^3/uL (1.5-5.0); LYMPH % 35.5 % (24.0-44.0); MEAN CORPUSCULAR HEMOGLOBIN 32.2 pg (27.0-33.0); MEAN CORPUSCULAR HGB CONC 33.2 g/dl (32.0-36.5); MEAN CORPUSCULAR VOLUME 97.2 fl (80.0-96.0); MONO # 0.6 10^3/uL (0.0-0.8); NEUTROPHILS # 4.4 10^3/uL (1.5-8.5); NEUTROPHILS % 53.9 % (36.0-66.0); PLATELET COUNT, AUTOMATED 306 10^3/uL (150-450); RED BLOOD COUNT 3.91 10^6/uL (4.00-5.40); WHITE BLOOD COUNT 8.2 10^3/uL (4.0-10.0)
[2023-09-07 18:04] LABS: INR 0.99; PROTHROMBIN TIME 12.8 SECONDS (12.5-14.5)
[2023-09-07 18:16] LABS: LIPASE 43 U/L (12-53)
[2023-09-07 18:17] LABS: CPK CREATINE PHOSPHOKINASE 183 U/L (34-145); MB/CK RELATIVE INDEX 0.54 (< OR =4)
[2023-09-07 18:22] LABS: ALBUMIN 3.5 G/DL (3.2-5.2); ALKALINE PHOSPHATASE 99 U/L (46-116); ALT/SGPT 40 U/L (7.0-40); AST/SGOT 22 U/L (<34); BILIRUBIN,DIRECT 0.1 MG/DL (<0.4); BILIRUBIN,TOTAL 0.5 MG/DL (0.3-1.2); BLOOD UREA NITROGEN 19 MG/DL (9-23); CALCIUM LEVEL 8.6 MG/DL (8.5-10.1); CARBON DIOXIDE LEVEL 32 MMOL/L (20-31); CHLORIDE LEVEL 103 MMOL/L (98-107); GLOMERULAR FILTRATION RATE > 60.0 (>51); GLUCOSE, FASTING 153 MG/DL (60-100); POTASSIUM SERUM 3.7 MMOL/L (3.5-5.1); SODIUM LEVEL 138 MMOL/L (136-145); TOTAL PROTEIN 6.5 G/DL (5.7-8.2)
[2023-09-07 18:54] LABS: RSV AMPLIFICATION NEGATIVE (NEGATIVE)
[2023-09-07] MEDS: LIDOCAINE 5% (LIDODERM) PATCH TD ONE (19:42)
[2023-09-07] MEDS: KETOROLAC 60MG 2ML VIAL IM ONE (19:43)
[2023-09-07 21:22] VITALS: BP 139/98; O2SAT 98
== END 2023-09-07 21:26 | disposition home or self-care (01) ==
LOC: M ED 17:06
DX: M50.10 Cervical disc disorder with radiculopathy, unspecified cervical region (principal); E11.9 Type 2 diabetes mellitus without complications; I10 Essential (primary) hypertension; M54.30 Sciatica, unspecified side; Z79.02 Long term (current) use of antithrombotics/antiplatelets; Z79.4 Long term (current) use of insulin; Z79.891 Long term (current) use of opiate analgesic; Z79.811 Long term (current) use of aromatase inhibitors; Z79.899 Other long term (current) drug therapy
CPT/HCPCS: 71045; 72125; 72128; 80048; 80076; 82550; 82553; 83690; 84484; 85025; 85610; 87631; 93005; 96372; 99284; J1885

== ENCOUNTER 2024-02-21 19:16 | Emergency (ER) | payer OTHER ==
[~2024-02-21] VITALS: Ht 160 cm; Wt 94.3 kg
[~2024-02-21 19:16] MED LIST changes: +HYDR-3713; +TIZA4CAP3 PO; -TIZA4CAP6 PO
[2024-02-21 23:58] VITALS: BP 123/75; TEMP 97; O2SAT 100
== END 2024-02-22 00:02 | disposition home or self-care (01) ==
LOC: M ED 19:16
DX: M54.50 Low back pain, unspecified (principal); E11.9 Type 2 diabetes mellitus without complications; K21.9 Gastro-esophageal reflux disease without esophagitis; F41.9 Anxiety disorder, unspecified; F32.A Depression, unspecified; Z79.02 Long term (current) use of antithrombotics/antiplatelets; Z79.4 Long term (current) use of insulin; Z79.899 Other long term (current) drug therapy

== ENCOUNTER → 2024-04-04 | Outpatient (REF) | payer OTHER | LOC: M LAB REF 14:46 | PROVIDERS: ATTEND Physician Assistant | DX: B34.9 Viral infection, unspecified (principal) ==

== ENCOUNTER 2024-05-30 16:13 | Emergency (ER) | payer OTHER ==
[~2024-05-30] VITALS: Ht 160 cm; Wt 94.5 kg
[2024-05-30] MEDS ORDERED: CLON0.12 PO (16:28)
[2024-05-30] MEDS: KETOROLAC 60MG 2ML VIAL IM ONE (19:39)
[2024-05-30 20:13] VITALS: BP 140/64; TEMP 97.9; O2SAT 99
== END 2024-05-30 20:15 | disposition home or self-care (01) ==
LOC: M ED 16:13
DX: S02.2XXA Fracture of nasal bones, initial encounter for closed fracture (principal); Y92.9 Unspecified place or not applicable; Y93.9 Activity, unspecified; Y99.9 Unspecified external cause status; W22.8XXA Striking against or struck by other objects, initial encounter; E11.9 Type 2 diabetes mellitus without complications; J45.909 Unspecified asthma, uncomplicated; K21.9 Gastro-esophageal reflux disease without esophagitis; Z79.1 Long term (current) use of non-steroidal anti-inflammatories (NSAID); Z79.84 Long term (current) use of oral hypoglycemic drugs; Z79.899 Other long term (current) drug therapy
CPT/HCPCS: 70486; 96372; 99283; J1885

== ENCOUNTER 2024-07-04 21:26 | Emergency (ER) | payer OTHER ==
[~2024-07-04] VITALS: Ht 160 cm; Wt 95.5 kg
[~2024-07-04 21:26] MED LIST changes: +CLON0.12 PO
[2024-07-04 22:05] LABS: BASO % 0.2 % (0.0-1.0); EOS # 0.5 10^3/uL (0.0-0.5); EOS % 3.5 % (0.0-3.0); HEMATOCRIT 41.8 % (36.0-47.0); HEMOGLOBIN 13.7 g/dl (12.0-15.5); LYMPH # 4.3 10^3/uL (1.5-5.0); LYMPH % 33.4 % (24.0-44.0); MEAN CORPUSCULAR HGB CONC 32.8 g/dl (32.0-36.5); MEAN CORPUSCULAR VOLUME 97.7 fl (80.0-96.0); MONO # 0.7 10^3/uL (0.0-0.8); MONO % 5.4 % (2.0-8.0); NEUTROPHILS # 7.4 10^3/uL (1.5-8.5); NEUTROPHILS % 57.1 % (36.0-66.0); PLATELET COUNT, AUTOMATED 327 10^3/uL (150-450); RED BLOOD COUNT 4.28 10^6/uL (4.00-5.40)
[2024-07-04 22:38] LABS: BLOOD UREA NITROGEN 21 MG/DL (9-23); CALCIUM LEVEL 8.4 MG/DL (8.5-10.1); CARBON DIOXIDE LEVEL 30 MMOL/L (20-31); CHLORIDE LEVEL 101 MMOL/L (98-107); CK-MB VALUE MASS < 1.0 NG/ML (<3.6); CREATININE FOR GFR 0.54 MG/DL (0.55-1.30); GLOMERULAR FILTRATION RATE > 60.0 (>51); GLUCOSE, FASTING 166 MG/DL (60-100); POTASSIUM SERUM 3.7 MMOL/L (3.5-5.1); SODIUM LEVEL 144 MMOL/L (136-145)
[2024-07-04] MEDS: KETOROLAC 30 MG/ML 1ML VIAL IV ONE (22:38)
[2024-07-04 22:40] LABS: CPK CREATINE PHOSPHOKINASE 97 U/L (34-145); MB/CK RELATIVE INDEX 1.03 (< OR =4)
[2024-07-04 23:14] LABS: CK-MB VALUE MASS < 1.0 NG/ML (<3.6)
[2024-07-04 23:23] LABS: CPK CREATINE PHOSPHOKINASE 94 U/L (34-145); MB/CK RELATIVE INDEX 1.06 (< OR =4)
[2024-07-05 00:42] VITALS: BP 123/66; TEMP 97.7; O2SAT 97
== END 2024-07-05 00:45 | disposition home or self-care (01) ==
LOC: M ED 21:26
DX: R07.89 Other chest pain (principal); E11.9 Type 2 diabetes mellitus without complications; E78.5 Hyperlipidemia, unspecified; F32.A Depression, unspecified; F41.9 Anxiety disorder, unspecified; F43.10 Post-traumatic stress disorder, unspecified; Z86.73 Personal history of transient ischemic attack (TIA), and cerebral infarction without residual deficits; Z79.1 Long term (current) use of non-steroidal anti-inflammatories (NSAID); Z79.84 Long term (current) use of oral hypoglycemic drugs; Z79.899 Other long term (current) drug therapy
CPT/HCPCS: 71046; 80048; 82550; 82553; 84484; 85025; 93005; 93041; 94760; 96374; 99284; J1885

== ENCOUNTER 2024-07-30 10:53 | Emergency (ER) | payer OTHER ==
[~2024-07-30] VITALS: Ht 160 cm; Wt 95.5 kg
[2024-07-30] MEDS ORDERED: SEMA0.257 SQ (12:03)
[2024-07-30 12:21] LABS: HEMATOCRIT 45.2 % (36.0-47.0); HEMOGLOBIN 14.8 g/dl (12.0-15.5); MEAN CORPUSCULAR HEMOGLOBIN 31.8 pg (27.0-33.0); MEAN CORPUSCULAR HGB CONC 32.7 g/dl (32.0-36.5); PLATELET COUNT, AUTOMATED 353 10^3/uL (150-450); RED BLOOD COUNT 4.66 10^6/uL (4.00-5.40); WHITE BLOOD COUNT 13.7 10^3/uL (4.0-10.0)
[2024-07-30 12:46] LABS: LIPASE 38 U/L (12-53)
[2024-07-30 12:48] LABS: ALBUMIN 3.5 G/DL (3.2-5.2); ALKALINE PHOSPHATASE 117 U/L (35-104); ALT/SGPT 28 U/L (7.0-40); AMYLASE 50 U/L (30-118); AST/SGOT 19 U/L (<34); BILIRUBIN,DIRECT 0.1 MG/DL (<0.4); BILIRUBIN,TOTAL 0.4 MG/DL (0.3-1.2); BLOOD UREA NITROGEN 19 MG/DL (9-23); CALCIUM LEVEL 9.1 MG/DL (8.5-10.1); CARBON DIOXIDE LEVEL 25 MMOL/L (20-31); CHLORIDE LEVEL 105 MMOL/L (98-107); CREATININE FOR GFR 0.61 MG/DL (0.55-1.30); GLOMERULAR FILTRATION RATE > 60.0 (>51); GLUCOSE, FASTING 123 MG/DL (60-100); POTASSIUM SERUM 4.4 MMOL/L (3.5-5.1); SODIUM LEVEL 142 MMOL/L (136-145); TOTAL PROTEIN 7.2 G/DL (5.7-8.2)
[2024-07-30] MEDS: ACETAMINOPHEN *IV* 1,000 MG in IV 1 EA IV ONE (12:50)
[2024-07-30] MEDS ORDERED: ISOVUE-370 76% 100ML VIAL As Ordered ONE (13:27)
[2024-07-30] MEDS: diphenhydrAMINE 50MG/ML VIAL IV ONE (14:38)
[2024-07-30] MEDS: KETOROLAC 30 MG/ML 1ML VIAL IV ONE (14:39)
[2024-07-30] MEDS: NS (Normal Saline) 0.9% 1,000 ML IV ONE (14:40)
[2024-07-30 16:02] VITALS: BP 166/68; TEMP 98.1; O2SAT 99
== END 2024-07-30 16:00 | disposition home or self-care (01) ==
LOC: M ED 10:53
DX: R51.9 Headache, unspecified (principal); R19.7 Diarrhea, unspecified; E11.9 Type 2 diabetes mellitus without complications; K21.9 Gastro-esophageal reflux disease without esophagitis; J45.909 Unspecified asthma, uncomplicated; M79.7 Fibromyalgia; Z79.1 Long term (current) use of non-steroidal anti-inflammatories (NSAID); Z79.84 Long term (current) use of oral hypoglycemic drugs; Z79.4 Long term (current) use of insulin; Z79.899 Other long term (current) drug therapy
CPT/HCPCS: 74177; 80048; 80076; 82150; 83690; 85027; 87486; 87581; 87633; 87798; 96361; 96365; 96366; 96375; 99284; J0131; J1100; J1200; J1885; Q9967

== ENCOUNTER → 2024-09-11 | Outpatient (REF) | payer OTHER ==
[~2024-09-11] MED LIST changes: +SEMA0.257 SQ
[2024-09-11 13:50] LABS: APPEARANCE, URINE HAZY (CLEAR); BACTERIA, URINE AUTO 1+ (NEGATIVE); BILIRUBIN, URINE AUTO NEGATIVE (NEGATIVE); BLOOD, URINE BLOOD 1+ (NEGATIVE); COLOR, URINE YELLOW (YELLOW); GLUCOSE, URINE (UA) AUTO NEGATIVE (NEGATIVE); KETONE, URINE AUTO NEGATIVE (NEGATIVE); LEUKOCYTE ESTERASE, URINE AUTO 2+ (NEGATIVE); MUCUS, URINE SMALL (NEGATIVE); NITRITE, URINE AUTO NEGATIVE (NEGATIVE); PROTEIN, URINE AUTO 1+ mg/dL (NEGATIVE); RBC, URINE AUTO 10 /HPF (0-3); SPECIFIC GRAVITY URINE AUTO 1.015 (1.002-1.035); SQUAMOUS EPITHELIAL CELL UR AU 0 /HPF (0-6); UROBILINOGEN, URINE AUTO 0.2 mg/dL (0.0-2.0); WBC, URINE AUTO 178 /HPF (0-3)
== END ==
LOC: M LAB REF 12:39
PROVIDERS: ATTEND Physician Assistant Medical
DX: N39.0 Urinary tract infection, site not specified (principal)

== ENCOUNTER → 2024-10-04 | Outpatient (REF) | payer OTHER ==
[2024-10-04 12:37] LABS: APPEARANCE, URINE HAZY (CLEAR); BACTERIA, URINE AUTO 2+ (NEGATIVE); BILIRUBIN, URINE AUTO NEGATIVE (NEGATIVE); BLOOD, URINE BLOOD NEGATIVE (NEGATIVE); COLOR, URINE YELLOW (YELLOW); GLUCOSE, URINE (UA) AUTO NEGATIVE (NEGATIVE); KETONE, URINE AUTO NEGATIVE (NEGATIVE); LEUKOCYTE ESTERASE, URINE AUTO 1+ (NEGATIVE); MUCUS, URINE SMALL (NEGATIVE); NITRITE, URINE AUTO NEGATIVE (NEGATIVE); PROTEIN, URINE AUTO NEGATIVE (NEGATIVE); RBC, URINE AUTO 2 /HPF (0-3); SPECIFIC GRAVITY URINE AUTO 1.018 (1.002-1.035); SQUAMOUS EPITHELIAL CELL UR AU 1 /HPF (0-6); UROBILINOGEN, URINE AUTO 0.2 mg/dL (0.0-2.0); WBC, URINE AUTO 80 /HPF (0-3)
== END ==
LOC: M LAB REF 12:16
PROVIDERS: ATTEND Physician Assistant
DX: N39.0 Urinary tract infection, site not specified (principal); B34.9 Viral infection, unspecified

== ENCOUNTER 2024-10-13 18:32 | Emergency (ER) | payer OTHER ==
[~2024-10-13] VITALS: Ht 160 cm; Wt 96.4 kg
[~2024-10-13 18:32] MED LIST changes: -BUPR1TAB56 PO; +BUPR200T45 PO
[2024-10-13] MEDS ORDERED: CEPH250T PO (20:34)
[2024-10-13 20:53] VITALS: BP 122/76; TEMP 97.2; O2SAT 93
== END 2024-10-13 20:56 | disposition home or self-care (01) ==
LOC: M ED 18:32
DX: T81.31XA Disruption of external operation (surgical) wound, not elsewhere classified, initial encounter (principal); E11.9 Type 2 diabetes mellitus without complications; Z79.1 Long term (current) use of non-steroidal anti-inflammatories (NSAID); Z79.2 Long term (current) use of antibiotics; Z79.4 Long term (current) use of insulin; Z79.84 Long term (current) use of oral hypoglycemic drugs; Z79.899 Other long term (current) drug therapy

== ENCOUNTER → 2024-11-01 | Outpatient (CLI) | payer OTHER ==
[~2024-11-01] MED LIST changes: +CEPH250T PO
== END ==
LOC: M PLARAD 11:05
PROVIDERS: ATTEND Internal Medicine
DX: M54.16 Radiculopathy, lumbar region (principal)

== ENCOUNTER 2025-02-15 20:55 | Emergency (ER) | payer OTHER ==
[~2025-02-15] VITALS: Ht 160 cm; Wt 95.5 kg
[~2025-02-15 20:55] MED LIST changes: -FOLI0.8T3 PO; +FOLI800T5 PO
[2025-02-16] MEDS: ONDANSETRON 4MG ORAL DISINTEGRATING TAB PO ONE (00:20)
[2025-02-16] MEDS: ACETAMINOPHEN 500 MG TAB PO ONE (00:20)
[2025-02-16] MEDS: LIDOCAINE 5% PATCH TD ONE (00:21)
[2025-02-16] MEDS: KETOROLAC 30 MG/ML 1 ML VIAL IM ONE (00:25)
[2025-02-16] MEDS ORDERED: CYCL-707 PO (02:22)
[2025-02-16] MEDS ORDERED: MEDR4PAK PO (02:22)
[2025-02-16 02:53] VITALS: BP 137/82; TEMP 97.3; O2SAT 96
== END 2025-02-16 02:54 | disposition home or self-care (01) ==
LOC: M ED 20:55
DX: M25.551 Pain in right hip (principal); E11.9 Type 2 diabetes mellitus without complications; Z79.1 Long term (current) use of non-steroidal anti-inflammatories (NSAID); Z79.2 Long term (current) use of antibiotics; Z79.84 Long term (current) use of oral hypoglycemic drugs; Z79.899 Other long term (current) drug therapy
CPT/HCPCS: 73502; 96372; 99283; J1885

== ENCOUNTER → 2025-03-29 | Outpatient (CLI) | payer OTHER ==
[~2025-03-29] MED LIST changes: +CYCL-707 PO; +MEDR4PAK PO
== END ==
LOC: M RAD 03-26 12:36 → M PLAIMG 12:30
PROVIDERS: ATTEND Physician Assistant
DX: Z98.1 Arthrodesis status (principal); M54.42 Lumbago with sciatica, left side; M54.41 Lumbago with sciatica, right side; G89.29 Other chronic pain